=== PATIENT | female | born 1935 | race Hispanic/Latino ===

== ENCOUNTER 2018-07-20 13:21 | Emergency (ER) | payer OTHER ==
--- NOTE | 2018-07-20 14:06 | EDPHYS ---
Physician Documentation [facility] Name: Harpreet Salazar Age: 82 yrs Sex: Female : 1935 Arrival Date: 07/20/2018 Time: 13:25 Bed 28 Private MD: Dee Dee Lubin ED Physician Ervin Watkins HPI: 07/20 13:53 This 82 yrs old Female presents to ER via Ambulatory with complaints of Lips jr8 Swelling. 13:53 Onset: The symptoms/episode began/occurred gradually, 1 week(s) ago. Duration: The jr8 symptoms are continuous. Modifying factors: The symptoms are alleviated by nothing, the symptoms are aggravated by cold fluids, hot fluids, talking. Associated signs and symptoms: The patient has no apparent associated signs or symptoms. Severity of symptoms: At their worst the symptoms were mild, in the emergency department the symptoms are unchanged. The patient has not experienced similar symptoms in the past. The patient has not recently seen a physician. Noticed tenderness and cracking of lips about one week ago that is getting worse. No has lesions on lips. Historical: - Allergies: 13:31 No Known Allergies; sv - Home Meds: 13:31 indapamide 2.5 mg oral tab [Active]; lisinopril 20 mg Oral tab [Active]; Bactrim DS sv 800-160 mg Oral tab [Active]; meloxicam 15 mg oral tab 1 tab once daily [Active]; - PMHx: 13:31 Hypertension; sv - PSHx: 13:31 Hysterectomy; sv - Immunization history:: Adult Immunizations up to date. - Social history:: Smoking status: Patient/guardian denies using tobacco. - Ebola Screening: : No symptoms or risks identified at this time. ROS: 13:53 Eyes: Negative for injury, pain, redness, and discharge, Neck: Negative for injury, jr8 pain, and swelling, Cardiovascular: Negative for chest pain, palpitations, and edema, Respiratory: Negative for shortness of breath, cough, wheezing, and pleuritic chest pain, Abdomen/GI: Negative for abdominal pain, nausea, vomiting, diarrhea, and constipation, Back: Negative for injury and pain, MS/Extremity: Negative for injury and deformity, Skin: Negative for injury, rash, and discoloration, Neuro: Negative for headache, weakness, numbness, tingling, and seizure. 13:53 ENT: Negative for foreign body sensation, Gum pain sore throat, dental pain, difficulty swallowing, difficulty handling secretions, hoarseness. Exam: 14:04 Head/Face: Normocephalic, atraumatic. Eyes: Pupils equal round and reactive to light, jr8 extra-ocular motions intact. Lids and lashes normal. Conjunctiva and sclera are non-icteric and not injected. Cornea within normal limits. Periorbital areas with no swelling, redness, or edema. Neck: Trachea midline, no thyromegaly or masses palpated, and no cervical lymphadenopathy. Supple, full range of motion without nuchal rigidity, or vertebral point tenderness. No Meningismus. Cardiovascular: Regular rate and rhythm with a normal S1 and S2. No gallops, murmurs, or rubs. Normal PMI, no JVD. No pulse deficits. Respiratory: Lungs have equal breath sounds bilaterally, clear to auscultation and percussion. No rales, rhonchi or wheezes noted. No increased work of breathing, no retractions or nasal flaring. Abdomen/GI: Soft, non-tender, with normal bowel sounds. No distension or tympany. No guarding or rebound. No evidence of tenderness throughout. Back: No spinal tenderness. No costovertebral tenderness. Full range of motion. Skin: Warm, dry with normal turgor. Normal color with no rashes, no lesions, and no evidence of cellulitis. MS/ Extremity: Pulses equal, no cyanosis. Neurovascular intact. Full, normal range of motion. Neuro: Awake and alert, GCS 15, oriented to person, place, time, and situation. Cranial nerves II-XII grossly intact. Motor strength 5/5 in all extremities. Sensory grossly intact. Cerebellar exam normal. Normal gait. 14:04 ENT: Exam is negative for earache, ear discharge, TM abnormalities, nasal discharge, pharyngitis, Mouth: Lips: moist, cracked, ulcerative lesions noted, Oral mucosa: pink and intact, moist, Gums: pink, Tongue: is moist, Posterior pharynx: Airway: patent, Tonsils: are normal in appearance, no enlargement, no erythema, no exudate, no ulcerations, Uvula: midline, non-edematous, no erythema, swelling, is not appreciated, erythema, is not appreciated. Vital Signs: 13:31 BP 147 / 64; Pulse 87; Resp 18; Temp 98.4; Pulse Ox 98% ; Weight 66.22 kg; Height 5 ft. sv 1 in. (154.94 cm); 13:31 Body Mass Index 27.59 (66.22 kg, 154.94 cm) sv MDM: 13:53 Patient medically screened. jr8 14:04 Data reviewed: vital signs, nurses notes, and as a result, I will discharge patient. jr8 Data interpreted: Pulse oximetry: on room air is 98 %. Interpretation: normal. Counseling: I had a detailed discussion with the patient and/or guardian regarding: the historical points, exam findings, and any diagnostic results supporting the discharge/admit diagnosis, the need for outpatient follow up, a family practitioner, to return to the emergency department if symptoms worsen or persist or if there are any questions or concerns that arise at home. Administered Medications: No medications were administered Disposition: 14:20 Co-signature as Attending Physician, Ervin Watkins MD I agree with the assessment and kdr plan of care. Disposition: 07/20/18 14:06 Discharged to Home. Impression: Stomatitis and related lesions. - Condition is Stable. - Discharge Instructions: Stomatitis. - Prescriptions for Acyclovir 400 mg Oral Tablet - take 1 tablet by ORAL route 5 times per day for 7 days; 35 tablet. - Medication Reconciliation Form, Thank You Letter, Antibiotic Education, Prescription Opioid Use form. - Follow up: Dee Dee Lubin MD; When: 1 week; Reason: Recheck today's complaints, Continuance of care, Re-evaluation by your physician. - Problem is new. - Symptoms have improved. Signatures: Alma Rojas, RN RN Ervin Sullivan MD MD [facility] Jayesh Soto PA PA jr8 Sandra Delgado RN RN kr2 Corrections: (The following items were deleted from the chart) 14:19 14:06 07/20/2018 14:06 Discharged to Home. Impression: Stomatitis and related lesions. kr2 Condition is Stable. Forms are Medication Reconciliation Form, Thank You Letter, Antibiotic Education, Prescription Opioid Use. Follow up: Dee Dee Lubin; When: 1 week; Reason: Recheck today's complaints, Continuance of care, Re-evaluation by your physician. Problem is new. Symptoms have improved. jr8
--- NOTE | 2018-07-20 14:06 | ER ---
Nurse's Notes [facility] Name: Harpreet Salazar Age: 82 yrs Sex: Female : 1935 Arrival Date: 07/20/2018 Time: 13:25 Bed 28 Private MD: Dee Dee Lubin Diagnosis: Stomatitis and related lesions Presentation: 07/20 13:29 Presenting complaint: Patient states: lip swelling started a week ago. also c/o hard sv time swallowing. Transition of care: patient was not received from another setting of care. Onset of symptoms was July 13, 2018. Care prior to arrival: None. 13:29 Method Of Arrival: Ambulatory sv 13:29 Acuity: NÉSTOR 3 sv 13:40 Risk Assessment: Do you want to hurt yourself or someone else? Patient reports no kr2 desire to harm self or others. Initial Sepsis Screen: Does the patient meet any 2 criteria? No. Patient's initial sepsis screen is negative. Does the patient have a suspected source of infection? No. Patient's initial sepsis screen is negative. Historical: - Allergies: 13:31 No Known Allergies; sv - Home Meds: 13:31 indapamide 2.5 mg oral tab [Active]; lisinopril 20 mg Oral tab [Active]; Bactrim DS sv 800-160 mg Oral tab [Active]; meloxicam 15 mg oral tab 1 tab once daily [Active]; - PMHx: 13:31 Hypertension; sv - PSHx: 13:31 Hysterectomy; sv - Immunization history:: Adult Immunizations up to date. - Social history:: Smoking status: Patient/guardian denies using tobacco. - Ebola Screening: : No symptoms or risks identified at this time. Screenin:17 Abuse screen: Denies threats or abuse. Denies injuries from another. Nutritional kr2 screening: No deficits noted. Tuberculosis screening: No symptoms or risk factors identified. Fall Risk None identified. Assessment: 13:40 General: Appears in no apparent distress. comfortable, well groomed, well developed, kr2 well nourished, Behavior is calm, cooperative, appropriate for age. Pain: Complains of pain in mouth Pain currently is 3 out of 10 on a pain scale. Quality of pain is described as tender, Is continuous. Neuro: Level of Consciousness is awake, alert, obeys commands, Oriented to person, place, time, situation, Appropriate for age. Cardiovascular: Capillary refill < 3 seconds in bilateral fingers Patient's skin is warm and dry. Respiratory: Airway is patent Respiratory effort is even, unlabored, Respiratory pattern is regular, symmetrical. EENT: lips cracked and swollen, small lesions around mouth. Derm: Skin is healthy with good turgor, Skin is pink, warm \T\ dry. Musculoskeletal: Circulation, motion, and sensation intact. Vital Signs: 13:31 BP 147 / 64; Pulse 87; Resp 18; Temp 98.4; Pulse Ox 98% ; Weight 66.22 kg; Height 5 ft. sv 1 in. (154.94 cm); 13:31 Body Mass Index 27.59 (66.22 kg, 154.94 cm) sv ED Course: 13:25 Patient arrived in ED. mr 13:26 Dee Dee Lubin MD is Private Physician. mr 13:30 Triage completed. sv 13:32 Arm band placed on right wrist. sv 13:34 [facility] jr8 13:34 Ervin Watkins MD is Attending Physician. jr8 13:39 Sandra Delgado, LONNIE is Primary Nurse. kr2 13:40 Patient has correct armband on for positive identification. Bed in low position. Call kr2 light in reach. Side rails up X 1. Pulse ox on. NIBP on. Door closed. Warm blanket given. Head of bed elevated. 14:06 Dee Dee Lubin MD is Referral Physician. jr8 14:18 No provider procedures requiring assistance completed. Patient did not have IV access kr2 during this emergency room visit. Administered Medications: No medications were administered Outcome: 14:06 Discharge ordered by . jr8 14:18 Discharged to home ambulatory. kr2 14:18 Condition: good 14:18 Discharge instructions given to patient, Instructed on discharge instructions, follow up and referral plans. medication usage, Demonstrated understanding of instructions, follow-up care, medications, Prescriptions given X 1. 14:19 Patient left the ED. kr2 Signatures: Alma Rojas RN RN HernandezLore mr Jayesh Soto PA PA jr8 Sandra Delgado, LONNIE RN kr2
[2018-07-20 14:23] VITALS: BP 147/64; TEMP 98.4; O2SAT 98
== END 2018-07-20 14:19 | disposition home or self-care (01) ==
LOC: ER 13:21
DX: K12.1 Other forms of stomatitis (principal); I10 Essential (primary) hypertension
CPT/HCPCS: 99283

== ENCOUNTER 2019-11-20 11:47 | Emergency (ER) | payer OTHER ==
--- OUTSIDE RECORDS SUMMARY | 2019-11-20 11:50 | XMS REPORT ---
:1935 Author Organization eClinical[employer] Care Team Providers Name Role Phone Amee Dee Dee Provider Role Unavailable Allergies, Adverse Reactions, Alerts Substance Reaction Event Type N.K.D.A. Info Not Available Non Drug Allergy Problems Problem Type Condition Code Onset Dates Condition Status Assessment Iron deficiency anemia, unspecified D50.9 Active iron deficiency anemia type Problem Electrolyte abnormality E87.8 Active Assessment Prediabetes R73.03 Active Problem Abnormal CBC R79.89 Active Assessment Hypomagnesemia E83.42 Active Problem High blood pressure I10 Active Problem S/P hysterectomy Z90.710 Active Problem Chest pain, unspecified type R07.9 Active Problem Rash and nonspecific skin eruption R21 Active Problem Hypokalemia E87.6 Active Assessment Rash and nonspecific skin eruption R21 Active Assessment Ingrown toenail L60.0 Active Problem Ingrown toenail L60.0 Active Assessment Hypokalemia E87.6 Active Problem Iron deficiency anemia, unspecified D50.9 Active iron deficiency anemia type Problem Anemia, unspecified type D64.9 Active Problem Depression screening Z13.31 Active Problem Prediabetes R73.03 Active Problem Hypomagnesemia E83.42 Active Problem Seasonal allergies J30.2 Active Assessment Essential hypertension I10 Active Problem Lower abdominal pain R10.30 Active Problem History of ovarian cyst Z87.42 Active Problem Hyperglycemia R73.9 Active Problem Essential hypertension I10 Active Medications Medication Code Code Instructions Start End Status Dosage System Date Date Ferrous Sulfate [facility] 40477937310 325 (65 Fe) MG December Active 1 tablet Orally Twice a , 2018 Triamcinolone ND 91799215837 0.1 % Oct 04, Active 1 application Acetonide Externally 2019 to affected Twice a day areas Lisinopril ND 72028685762 20 MG Orally Active 1 tablet Once a day Indapamide ND 44677394401 2.5 MG Orally Active 1 tablet in Once a day the morning Results No Known Results Summary Purpose eClinicalWorks Submission
--- OUTSIDE RECORDS SUMMARY | 2019-11-20 11:50 | XMS REPORT ---
:1935 Author Organization [employer] Care Team Providers Name Role Phone Dee Dee Lubin Provider Role Unavailable Allergies, Adverse Reactions, Alerts Substance Reaction Event Type N.K.D.A. Info Not Available Non Drug Allergy Problems Problem Type Condition Code Onset Dates Condition Status Problem Electrolyte abnormality E87.8 Active Problem High blood pressure I10 Active Problem Abnormal CBC R79.89 Active Problem Depression screening Z13.31 Active Assessment Prediabetes R73.03 Active Problem Prediabetes R73.03 Active Assessment Iron deficiency anemia, unspecified D50.9 Active iron deficiency anemia type Problem Hypokalemia E87.6 Active Problem S/P hysterectomy Z90.710 Active Problem Chest pain, unspecified type R07.9 Active Problem Iron deficiency anemia, unspecified D50.9 Active iron deficiency anemia type Problem Anemia, unspecified type D64.9 Active Assessment Essential hypertension I10 Active Assessment Hypomagnesemia E83.42 Active Assessment Hypokalemia E87.6 Active Problem History of ovarian cyst Z87.42 Active Problem Hyperglycemia R73.9 Active Problem Hypomagnesemia E83.42 Active Problem Essential hypertension I10 Active Problem Seasonal allergies J30.2 Active Problem Lower abdominal pain R10.30 Active Medications Medication Code Code Instructions Start End Status Dosage System Date Date Ferrous [facility] 19399873681 325 (65 Fe) MG January 04, Active 1 tablet Sulfate Orally Twice a 2019 day Lisinopril [facility] 05937042598 20 mg Orally Active 1 tablet Once a day Indapamide [facility] 61800095951 2.5 MG Orally Active 1 tablet Once a day in the morning Results No Known Results Summary Purpose eClinicalWorks Submission
--- OUTSIDE RECORDS SUMMARY | 2019-11-20 11:50 | XMS REPORT ---
:1935 Author Organization [employer] Care Team Providers Name Role Phone Dee Dee Lubin Provider Role Unavailable Allergies No Known Allergies Problems Problem Type Condition Code Onset Dates Condition Status Problem High blood pressure I10 Active Problem S/P hysterectomy Z90.710 Active Problem Chest pain, unspecified type R07.9 Active Problem Rash and nonspecific skin eruption R21 Active Problem Hypokalemia E87.6 Active Problem Ingrown toenail L60.0 Active Problem Iron deficiency anemia, unspecified D50.9 Active iron deficiency anemia type Problem Anemia, unspecified type D64.9 Active Problem Depression screening Z13.31 Active Problem Prediabetes R73.03 Active Problem Hypomagnesemia E83.42 Active Problem Seasonal allergies J30.2 Active Problem Lower abdominal pain R10.30 Active Problem History of ovarian cyst Z87.42 Active Problem Hyperglycemia R73.9 Active Problem Electrolyte abnormality E87.8 Active Problem Essential hypertension I10 Active Problem Abnormal CBC R79.89 Active Medications No Known Medications Results No Known Results Summary Purpose eClinicalWorks Submission
[2019-11-20] MEDS ORDERED: IBUPROFEN 200 MG TAB PO ONE (12:49)
--- NOTE | 2019-11-20 14:16 | ER ---
Nurse's Notes [facility] Name: Harpreet Salazar Age: 84 yrs Sex: Female : 1935 Arrival Date: 11/20/2019 Time: 11:50 Bed 28 Private MD: Diagnosis: Fall (on)(from) sidewalk curb Presentation: 11/20 12:17 Presenting complaint: Patient states: She fell on Thursday morning and landed on her aj1 right side. Patient reports pain to right ribs and right upper arm. Reports that pain is worse with deep breathing. Transition of care: patient was not received from another setting of care. Onset of symptoms was 2019. Risk Assessment: Do you want to hurt yourself or someone else? Patient reports no desire to harm self or others. Initial Sepsis Screen: Does the patient meet any 2 criteria? No. Patient's initial sepsis screen is negative. Does the patient have a suspected source of infection? No. Patient's initial sepsis screen is negative. Care prior to arrival: None. 12:17 Method Of Arrival: Ambulatory aj1 12:17 Acuity: NÉSTOR 4 aj1 Triage Assessment: 12:22 General: Appears in no apparent distress. comfortable, Behavior is calm, cooperative, aj1 appropriate for age. Pain: Pain currently is 8 out of 10 on a pain scale. Historical: - Allergies: 12:22 No Known Allergies; aj1 - Home Meds: 12:22 lisinopril 2.5 mg Oral tab 1 tab once daily [Active]; indapamide 2.5 mg Oral tab aj1 [Active]; - PMHx: 12:22 Hypertension; aj1 - Immunization history:: Flu vaccine is up to date. - Social history:: Smoking status: Patient/guardian denies using tobacco, Patient/guardian denies using alcohol, street drugs, The patient lives with family. - Ebola Screening: : Patient denies travel to an Ebola-affected area in the 21 days before illness onset. - Family history:: not pertinent. Screenin:23 Abuse screen: Denies threats or abuse. Denies injuries from another. Nutritional aj1 screening: No deficits noted. Tuberculosis screening: No symptoms or risk factors identified. 14:43 Fall Risk None identified. aj1 Assessment: 12:23 General: Appears in no apparent distress. comfortable, Behavior is calm, cooperative, aj1 appropriate for age. Pain: Complains of pain in right lateral posterior chest, right lateral anterior chest, right bicep and right tricep Pain does not radiate. Pain currently is 8 out of 10 on a pain scale. Quality of pain is described as sharp, Pain began 2-3 days ago. Aggravated by deep breathing. Neuro: Level of Consciousness is awake, alert, obeys commands, Oriented to person, place, time, situation. Cardiovascular: Patient's skin is warm and dry. Respiratory: Airway is patent Respiratory effort is even, unlabored, Respiratory pattern is regular, symmetrical. GI: No signs and/or symptoms were reported involving the gastrointestinal system. : No signs and/or symptoms were reported regarding the genitourinary system. EENT: No signs and/or symptoms were reported regarding the EENT system. Derm: No signs and/or symptoms reported regarding the dermatologic system. Skin is pink, warm \T\ dry. normal. Musculoskeletal: No signs and/or symptoms reported regarding the musculoskeletal system. Circulation, motion, and sensation intact. 13:30 Reassessment: Patient appears in no apparent distress at this time. No changes from aj1 previously documented assessment. Patient and/or family updated on plan of care and expected duration. Pain level reassessed. Patient is alert, oriented x 3, equal unlabored respirations, skin warm/dry/pink. 14:42 Reassessment: Patient appears in no apparent distress at this time. No changes from aj1 previously documented assessment. Patient and/or family updated on plan of care and expected duration. Pain level reassessed. Patient is alert, oriented x 3, equal unlabored respirations, skin warm/dry/pink. Vital Signs: 12:22 BP 122 / 61; Pulse 80; Resp 18; Temp 97.5; Pulse Ox 99% on R/A; Weight 63.5 kg (R); aj1 Height 5 ft. 1 in. (154.94 cm) (R); Pain 8/10; 13:30 BP 121 / 63; Pulse 82; Resp 18; Pulse Ox 97% on R/A; aj1 12:22 Body Mass Index 26.45 (63.50 kg, 154.94 cm) aj1 ED Course: 11:50 Patient arrived in ED. rg4 11:55 Keyshawn Sheldon MD is Attending Physician. ma2 12:17 Hilary Sheikh, RN is Primary Nurse. aj1 12:21 Triage completed. aj1 12:22 Arm band placed on Patient placed in an exam room. aj1 12:23 Patient has correct armband on for positive identification. Bed in low position. Call aj1 light in reach. Side rails up X 1. 12:23 No provider procedures requiring assistance completed. aj1 13:04 Chest Pa And Lat (2 Views) XRAY In Process Unspecified. EDMS 14:30 Patient did not have IV access during this emergency room visit. sg Administered Medications: 12:48 Drug: Motrin 200 mg Route: PO; aj1 Outcome: 14:15 Discharge ordered by . ma2 14:30 Discharged to home ambulatory, with family. sg 14:30 Condition: good 14:30 Discharge instructions given to patient, Instructed on discharge instructions, follow up and referral plans. no drinking with medication, no driving heavy equipment, medication usage, safety practices, Demonstrated understanding of instructions, follow-up care, medications, Prescriptions given X 1. 14:39 Patient left the ED. sg Signatures: Dispatcher [employer] EDHilary Cooley, RN RN Deo Medeiros RN RN sg Garcia, Rubi rg4 Keyshawn Sheldon MD MD [facility]
--- NOTE | 2019-11-20 14:16 | EDPHYS ---
Physician Documentation [facility] Name: Harpreet Salazar Age: 84 yrs Sex: Female : 1935 Arrival Date: 11/20/2019 Time: 11:50 Bed 28 Private MD: ED Physician Keyshawn Sheldon HPI: 11/20 12:45 This 84 yrs old Female presents to ER via Ambulatory with complaints of Rib ma2 Pain. 12:45 The patient or guardian reports chest pain that is located primarily in the right ma2 lateral posterior chest. Onset: The symptoms/episode began/occurred suddenly, 2 day(s) ago. Associated signs and symptoms: Pertinent negatives: diaphoresis, headache, lower extremity swelling, lightheadedness. Severity of pain: At its worst the pain was mild in the emergency department the pain is unchanged. The patient has not experienced similar symptoms in the past. tripped and fell has right sided chest wall pain . Historical: - Allergies: 12:22 No Known Allergies; aj1 - Home Meds: 12:22 lisinopril 2.5 mg Oral tab 1 tab once daily [Active]; indapamide 2.5 mg Oral tab aj1 [Active]; - PMHx: 12:22 Hypertension; aj1 - Immunization history:: Flu vaccine is up to date. - Social history:: Smoking status: Patient/guardian denies using tobacco, Patient/guardian denies using alcohol, street drugs, The patient lives with family. - Ebola Screening: : Patient denies travel to an Ebola-affected area in the 21 days before illness onset. - Family history:: not pertinent. ROS: 12:45 Constitutional: Negative for fever, chills, and weight loss. ma2 12:45 All other systems are negative. Exam: 12:45 Constitutional: This is a well developed, well nourished patient who is awake, alert, ma2 and in no acute distress. Head/Face: Normocephalic, atraumatic. Eyes: Pupils equal round and reactive to light, extra-ocular motions intact. Lids and lashes normal. Conjunctiva and sclera are non-icteric and not injected. Cornea within normal limits. Periorbital areas with no swelling, redness, or edema. ENT: Nares patent. No nasal discharge, no septal abnormalities noted. Tympanic membranes are normal and external auditory canals are clear. Oropharynx with no redness, swelling, or masses, exudates, or evidence of obstruction, uvula midline. Mucous membranes moist. Neck: Trachea midline, no thyromegaly or masses palpated, and no cervical lymphadenopathy. Supple, full range of motion without nuchal rigidity, or vertebral point tenderness. No Meningismus. Chest/axilla: Normal chest wall appearance and motion. + ttp on right lateral 9th rib, no skin chages no deformity. No lesions are appreciated. Cardiovascular: Regular rate and rhythm with a normal S1 and S2. No gallops, murmurs, or rubs. Normal PMI, no JVD. No pulse deficits. Respiratory: Lungs have equal breath sounds bilaterally, clear to auscultation and percussion. No rales, rhonchi or wheezes noted. No increased work of breathing, no retractions or nasal flaring. Abdomen/GI: Soft, non-tender, with normal bowel sounds. No distension or tympany. No guarding or rebound. No evidence of tenderness throughout. Vital Signs: 12:22 BP 122 / 61; Pulse 80; Resp 18; Temp 97.5; Pulse Ox 99% on R/A; Weight 63.5 kg (R); aj1 Height 5 ft. 1 in. (154.94 cm) (R); Pain 8/10; 13:30 BP 121 / 63; Pulse 82; Resp 18; Pulse Ox 97% on R/A; aj1 12:22 Body Mass Index 26.45 (63.50 kg, 154.94 cm) [facility] MDM: 11:55 Patient medically screened. ma2 12:45 Differential diagnosis: Blunt Chest Trauma Chest Wall Contusion Chest Wall Injury Rib ma2 Fracture. Data reviewed: vital signs, nurses notes. Counseling: I had a detailed discussion with the patient and/or guardian regarding: the historical points, exam findings, and any diagnostic results supporting the discharge/admit diagnosis, the presence of at least one elevated blood pressure reading (>120/80) during this emergency department visit, the need for outpatient follow up. Response to treatment: the patient's symptoms have markedly improved after treatment. 11/20 12:25 Order name: Chest Pa And Lat (2 Views) XRAY ma2 Administered Medications: 12:48 Drug: Motrin 200 mg Route: PO; aj1 Disposition: 11/20/19 14:15 Discharged to Home. Impression: Fall (on)(from) sidewalk curb. - Condition is Stable. - Prescriptions for Tylenol- Codeine #3 300-30 mg Oral Tablet - take 2 tablet by ORAL route every 6 hours As needed; 30 tablet. - Medication Reconciliation Form, Thank You Letter, Antibiotic Education, Prescription Opioid Use form. - Follow up: Private Physician; When: Tomorrow; Reason: Continuance of care. Signatures: Dispatcher [employer] EDHilary Cooley RN RN aj1 Deo Escobar RN RN sg Keyshawn Sheldon MD MD ma2 Corrections: (The following items were deleted from the chart) 14:39 14:15 11/20/2019 14:15 Discharged to Home. Impression: Fall (on)(from) sidewalk curb. sg Condition is Stable. Prescriptions for Tylenol-Codeine #3 300-30 mg Oral Tablet - take 2 tablet by ORAL route every 6 hours As needed; 30 tablet. and Forms are Medication Reconciliation Form, Thank You Letter, Antibiotic Education, Prescription Opioid Use. Follow up: Private Physician; When: Tomorrow; Reason: Continuance of care. ma2
--- NOTE | 2019-11-20 14:18 | RAD REPORT ---
EXAM DESCRIPTION: RAD - Chest Pa And Lat (2 Views) - 11/20/2019 1:04 pm CLINICAL HISTORY: right lower rib pain s/p trauma COMPARISON: CHEST SINGLE VIEW dated 07/05/2015; CHEST SINGLE VIEW dated 03/13/2014 TECHNIQUE: Frontal and lateral views of the chest were obtained. FINDINGS: The lungs are fibrotic as a baseline. Interstitial markings in the left base are slightly more pronounced than the comparison study. Correlation can be made with any left findings are physica l exam findings for a posterior left base early pneumonia. Chronic disease could mask early interstit ial edema or infiltrate. Heart size is normal and central vasculature is within normal limits. No pleural effusion or pneumothorax seen. No acute bony finding noted. No aortic abnormality. IMPRESSION: Posterior left base stranding increased over the baseline fibrotic change. Correlation is needed with any lab or exam findings for posterior left lung base early pneumonia.
[2019-11-20 15:01] VITALS: BP 122/61; TEMP 97.5; O2SAT 99
== END 2019-11-20 14:39 | disposition home or self-care (01) ==
LOC: ER 11:47
DX: R07.81 Pleurodynia (principal); W10.1XXA Fall (on)(from) sidewalk curb, initial encounter; Y93.9 Activity, unspecified; Y92.9 Unspecified place or not applicable; I10 Essential (primary) hypertension
CPT/HCPCS: 71046; 99283

== ENCOUNTER 2020-09-11 09:57 | Emergency (ER) | payer OTHER ==
--- OUTSIDE RECORDS SUMMARY | 2020-09-11 10:03 | XMS REPORT | Continuity of Care Document ---
:1935 Author Organization [facility] t Address [address] [place] [address] Care Team Providers Name Role Phone Unavailable Unavailable Unavailable Problems Condition Condition Condition Status Onset Resolution Last Treating Co mments Source Name Details Category Date Date Treatment Clinician Date Essential Essential Problem Active [facility] hypertensi hypertensi Melvina kes - [facility] Seasonal Seasonal Problem [facility] allergies [facility] - [facility] Electrolyt Electrolyt Problem Active [facility] - abnormalit abnormalit Me moria y y l [facility] Abnormal Abnormal Problem Active [facility] CBC CBC [facility] Hyperglyce Hyperglyce Problem Active [facility] hortencia hortencia [facility] Lower Lower Problem Active [facility] abdominal abdominal Luke s - pain pain [facility]oria l [facility] S/P S/P Problem Active [facility] hysterecto hysterecto Melvina kes - my my [facility]oria l [facility] Chest Chest Problem Active [facility] pain, pain, [facility] - unspecifie unspecifie Me moria d type d type l [facility] History of History of Problem Active [facility] ovarian ovarian [facility] - cyst cyst [facility] l [facility] Anemia, Anemia, Problem Active [facility] unspecifie unspecifie Melvina kes - d type d type [facility] l [facility] Prediabete Prediabete Problem Active [facility] s s [facility] Iron Iron Diagnosis Active [facility] deficiency deficiency Melvina kes - anemia, anemia, Memoria unspecifie unspecifie l d iron d iron Outpati deficiency deficiency en t anemia anemia Clinics type type Depression Depression Problem Active [facility] screening screening [facility] - [facility]oria l [facility]ics Hypokalemi Hypokalemi Diagnosis Active [facility] Hypomagnes Hypomagnes Diagnosis Active [facility] Rash and Rash and Diagnosis Active [facility] nonspecifi nonspecifi Melvina kes - c skin c skin Memoria eruption eruption [facility] ent [facility] Ingrown Ingrown Problem Active [facility] toenail toenail [facility] Clinics Allergies, Adverse Reactions, Alerts This patient has no known allergies or adverse reactions. Medications Ordered Filled Start Stop Current Ordering Indication Dosage Frequency Signature Comments Components Source Medication Medication Date Date Medication? Clinician (SIG) Name Name Shygerard Lottieamcingerard 2018-11 Yes Dee Dee [address] [facility] ne ne 2-03 Millender applicatio Luke s - Acetonide Acetonide 00:00: n to Mem oria 00 affected l areas [facility] Ferrous Ferrous Yes Dee Dee [address] Sulfate Sulfate 3-05 Millender Luke s - 00:00: Memoria 00 l [facility] ent [facility]ics Indapamide Indapamide Yes Dee Dee [address] [facility] Millender in the Lukes - morning [facility] ent [facility] Lisinopril Lisinopril Yes Dee Dee [address] [facility] Millender [facility] ent [facility] Procedures This patient has no known procedures. Encounters Start End Encounter Admission Attending Care Care Encounter Source Date/Time Date/Time Type Type Clinicians Facility Department ID 2020-04-05 2020-04-05 Outpatient Adrian Benavidez [id number] [facility] 11:00[facility]00 11:00:00 [facility] 2020-01-04 2020-01-04 Outpatient Adrian [place] [id number] [facility] 10[facility]00[facility]00 10:00:00 [facility] 2019-10-04 2019-10-04 Outpatient Adrian [place] [id number] [facility] 10:59:00 10:59:00 [facility] 2019-10-04 2019-10-04 Outpatient Adrian [place] [id number] 10:00[facility]00 10:00:00 [facility] Medicine Outpati ent Clinics 2019-07-05 2019-07-05 [place] [id number] 09:40:00 09:40:00 [facility] Medicine Outpati ent Clinics 2019-06-14 2019-06-14 [place] [id number] [facility] 13:33:00 13:33:00 t [facility] Medicine Outpati ent Clinics 2019-05-06 2019-05-06 [place] [id number] [facility] 09:21:00 09:21:00 t [facility] Medicine Outpati ent Clinics 2019-04-27 2019-04-27 [facility] [id number] [facility] 10:00:00 10:00:00 [facility] Medicine Outpati ent Clinics 2019-01-10 2019-01-10 [place] [id number] [facility] 16:47:00 16:47:00 t [facility] Medicine Outpati ent Clinics 2019-01-04 2019-01-04 [place] [id number] [facility] 16:12:00 16:12:00 [facility] Medicine Outpati ent Clinics 2019-01-03 2019-01-03 [facility] [id number] [facility] 11:30:00 11:30:00 t [facility] Medicine Outpati ent Clinics 2018-08-09 2018-08-09 [facility] [id number] [facility] 22:25:00 22:25:00 t [facility] Medicine Outpati ent Clinics 2018-08-03 2018-08-03 [facility] [id number] [facility] 10[facility]30:00 10:30:00 [facility] Medicine Outpati ent Clinics Results This patient has no known results.
--- NOTE | 2020-09-11 10:41 | RAD REPORT ---
EXAM DESCRIPTION: CT - CTHCSPWOC - 09/11/2020 10:27 am CLINICAL HISTORY: Trauma, head and neck injury. SMASH INJURY COMPARISON: Head C Spine Mpr Wo Con dated 12/24/2016 TECHNIQUE: Axial 5 mm thick images of the head were obtained. Axial 2 mm thick images of the cervical spine were obtained with sagittal and coronal reconstruction images generated and reviewed. All CT scans are performed using dose optimization technique as appropriate and may include automated exposure control or mA/KV adjustment according to patient size. FINDINGS: CT HEAD WITHOUT CONTRAST: No acute hemorrhage, hydrocephalus or extra-axial collection is identified.Moderate brain atrophy.No areas of brain edema or midline shift. The paranasal sinuses and mastoids are clear.The calvarium is intact. CT CERVICAL SPINE WITHOUT CONTRAST: No fracture or subluxation.Mild lower cervical spondylosis.No prevertebral soft tissues swelling is i dentified. The left neural foramina at the level of C5-6 is enlarged. IMPRESSION: No acute intracranial or cervical spine findings. Left neural foramen at C5-6 appears prominent in size. Nonemergent follow-up MRI cervical spine with contrast would be suggested for additional assessment.
[2020-09-11] MEDS ORDERED: NA CHLORIDE 0.9% 1,000 ML ONE (10:47)
[2020-09-11 10:54] LABS: Absolute Lymphocytes (CBC) 2.1 K/uL (0.7-4.9); Basophils % 1.4 % (0-1.3); Hematocrit 21.8 % (36.0-45.0); Lymphocytes % 27.8 % (15.3-44.8); RBC Red Blood Cell Count 3.33 M/uL (3.86-4.86)
--- NOTE | 2020-09-11 11:03 | RAD REPORT ---
EXAM DESCRIPTION: RAD - Chest Single View - 09/11/2020 10:59 am CLINICAL HISTORY: dizzy Chest pain. COMPARISON: Chest Pa And Lat (2 Views) dated 11/20/2019; CHEST SINGLE VIEW dated 07/05/2015; CHEST SING LE VIEW dated 03/13/2014; CHEST SINGLE VIEW dated 03/12/2014 FINDINGS: Portable technique limits examination quality. The lungs are mildly emphysematous but grossly clear. The heart is upper limit normal in size. No dis placed fractures. IMPRESSION: Mild diffuse COPD.
[2020-09-11 11:12] LABS: Protime INR 1.09
[2020-09-11 11:14] LABS: Blood Morphology Comment NOTED (NOT SEEN); Hypochromasia 1+; Platelet Estimate INCR; White Blood Cell Scan OK (OK)
[2020-09-11 11:21] LABS: ALT/SGPT 12 U/L (12-78); AST/SGOT 16 U/L (15-37); Albumin 3.7 g/dL (3.4-5.0); Alkaline Phosphatase 86 U/L (45-117); BUN Blood Urea Nitrogen 21 mg/dL (7-18); Bicarbonate 25 mmol/L (21-32); Bilirubin Direct < 0.1 mg/dL (0-0.2); Bilirubin Total 0.5 mg/dL (0.2-1.0); Glucose Level 128 mg/dL (74-106); Magnesium 1.7 mg/dL (1.8-2.4); NT PRO-BNP 1108 pg/mL (<450); Potassium 3.5 mmol/L (3.5-5.1); Protein, Total 7.5 g/dL (6.4-8.2); Sodium Level 133 mmol/L (136-145); Troponin (Emerg Dept Use Only) 0.08 ng/mL (0.0-0.045)
[2020-09-11 11:27] LABS: Urine Blood NEGATIVE (NEG); Urine Glucose NEGATIVE (NEG); Urine Protein NEGATIVE (NEG)
[2020-09-11] MEDS ORDERED: NA CHLORIDE 0.9% 250 ML ONE ×2 (12:53→18:31)
--- NOTE | 2020-09-11 15:01 | EDPHYS ---
Physician Documentation [facility] Name: Harpreet Salazar Age: 84 yrs Sex: Female : 1935 Arrival Date: 09/11/2020 Time: 09:59 Bed 20 Private MD: Dee Dee Lubin ED Physician Rafael Wick HPI: 09/11 10:50 This 84 yrs old Female presents to ER via Ambulatory with complaints of snw Dizziness. 10:50 The patient presents with pt had palpitations, nausea, and then syncopal episode snw yesterday. No c/o except dizziness today. Denies chest pain, medications changes, previous hx of same. Onset: The symptoms/episode began/occurred suddenly, yesterday. Context: occurred at home, occurred while the patient was "hungry". Associated signs and symptoms: Pertinent positives: syncope. Patient's baseline: Neuro: alert and fully oriented, Motor: no deficits, Ambulation: walks with assist only, Speech: normal. The patient has not experienced similar symptoms in the past. It is unknown whether or not the patient has recently seen a physician. 10:57 Denies LOC. snw Historical: - Allergies: 10:07 No Known Allergies; ca1 - Home Meds: 10:07 lisinopril 20 mg Oral tab 1 tab once daily [Active]; indapamide 2.5 mg Oral tab ca1 [Active]; - PMHx: 10:07 Hypertension; ca1 - PSHx: 10:07 None; ca1 - Immunization history:: Adult Immunizations up to date, Pneumococcal vaccine is not up to date, Flu vaccine is up to date. - Social history:: Smoking status: Patient denies any tobacco usage or history of. ROS: 10:47 Constitutional: Negative for fever, chills, and weight loss, Eyes: Negative for injury, snw pain, redness, and discharge, ENT: Negative for injury, pain, and discharge, Neck: Negative for injury, pain, and swelling, Cardiovascular: Negative for chest pain and edema, palpitations Respiratory: Negative for shortness of breath, cough, wheezing, and pleuritic chest pain, Back: Negative for injury and pain, : Negative for injury, bleeding, discharge, and swelling, MS/Extremity: Negative for injury and deformity, Skin: Negative for injury, rash, and discoloration, Psych: Negative for depression, anxiety, suicide ideation, homicidal ideation, and hallucinations. 10:47 Abdomen/GI: Positive for nausea. 10:47 Neuro: Positive for dizziness. Exam: 10:40 ECG was reviewed by the Attending Physician. snw 10:47 Constitutional: This is a well developed, well nourished patient who is awake, alert, snw and in no acute distress. Head/Face: Normocephalic, atraumatic. Eyes: Pupils equal round and reactive to light, extra-ocular motions intact. Lids and lashes normal. Conjunctiva and sclera are non-icteric and not injected. Cornea within normal limits. Periorbital areas with no swelling, redness, or edema. ENT: Nares patent. No nasal discharge, no septal abnormalities noted. Tympanic membranes are normal and external auditory canals are clear. Oropharynx with no redness, swelling, or masses, exudates, or evidence of obstruction, uvula midline. Mucous membranes moist. Neck: Trachea midline, no thyromegaly or masses palpated, and no cervical lymphadenopathy. Supple, full range of motion without nuchal rigidity, or vertebral point tenderness. No Meningismus. Chest/axilla: Normal chest wall appearance and motion. Nontender with no deformity. No lesions are appreciated. Cardiovascular: Regular rate and rhythm with a normal S1 and S2. No gallops, murmurs, or rubs. Normal PMI, no JVD. No pulse deficits. Respiratory: Lungs have equal breath sounds bilaterally, clear to auscultation and percussion. No rales, rhonchi or wheezes noted. No increased work of breathing, no retractions or nasal flaring. Abdomen/GI: Soft, non-tender, with normal bowel sounds. No distension or tympany. No guarding or rebound. No evidence of tenderness throughout. Back: No spinal tenderness. No costovertebral tenderness. Full range of motion. Skin: Warm, dry with normal turgor. Normal color with no rashes, no lesions, and no evidence of cellulitis. MS/ Extremity: Pulses equal, no cyanosis. Neurovascular intact. Full, normal range of motion. Neuro: Awake and alert, GCS 15, oriented to person, place, time, and situation. Cranial nerves II-XII grossly intact. Motor strength 5/5 in all extremities. Sensory grossly intact. Cerebellar exam normal. Normal gait. Psych: Awake, alert, with orientation to person, place and time. Behavior, mood, and affect are within normal limits. 11:09 Abdomen/GI: Rectal exam: is unremarkable, rectal tone normal, Stool: guaiac positive, snw mass, is not appreciated, swelling, is not appreciated, tenderness, is not appreciated, the exam is chaperoned by the nurse. Vital Signs: 10:03 BP 115 / 45; Pulse 74; Resp 16 S; Temp 97.9(TE); Pulse Ox 100% on R/A; Weight 63.05 kg ca1 (R); Height 5 ft. 1 in. (154.94 cm) (R); Pain 0/10; 11:03 BP 119 / 53; Pulse 73; Resp 18; Pulse Ox 100% on R/A; ll2 11:30 BP 107 / 48; Pulse 66; Resp 19; Pulse Ox 100% ; ll2 12:30 BP 105 / 44; Pulse 65; Resp 17; Pulse Ox 100% ; ll2 13:30 BP 131 / 50; Pulse 66; Resp 16; Temp 98.0(TE); Pulse Ox 100% on R/A; mh5 14:21 BP 124 / 57; Pulse 63; Resp 16; Temp 97.5(TE); Pulse Ox 100% on R/A; mh5 15:00 BP 122 / 54; Pulse 63; Resp 16; Temp 97.7; Pulse Ox 100% ; ll2 16:50 BP 135 / 60; Pulse 66; Resp 16; Pulse Ox 97% on R/A; mh5 18:00 BP 162 / 64; Pulse 74; Resp 18; Temp 97.2; Pulse Ox 99% on R/A; ll2 19:00 BP 111 / 93; Pulse 67; Resp 18; Pulse Ox 100% on R/A; ll2 10:03 Body Mass Index 26.26 (63.05 kg, 154.94 cm) ca1 MDM: 10:08 Patient medically screened. snw 13:00 Data reviewed: nurses notes. Data interpreted: Pulse oximetry: on room air is 100 %. snw Interpretation: normal. Counseling: I had a detailed discussion with the patient and/or guardian regarding: the historical points, exam findings, and any diagnostic results supporting the discharge/admit diagnosis, lab results, radiology results, the need to transfer to another facility, [facility] does not immediately have the required specialist. 13:00 Response to treatment: the patient's symptoms have mildly improved after treatment. snw Physician consultation: Contreras Moreno MD was called at 13:00, was contacted at 13:00, regarding admission, to the telemetry unit. after a discussion of the case, a recommendation for transfer for higher level of care is made, would like consultation with Dr. AVILA, [place] is not available. Awaiting: transfer process. 14:00 Physician consultation: Dr Ramos was called at 14:57, was contacted at 14:57, regarding snw regarding transfer, [facility]. 09/11 10:12 Order name: Basic Metabolic Panel; Complete Time: 11:23 snw 09/11 10:12 Order name: CBC with Diff; Complete Time: 11: snw 09/11 10:12 Order name: LFT's; Complete Time: 11:23 snw 09/11 10:12 Order name: Magnesium; Complete Time: 11:23 snw 09/11 10:12 Order name: NT PRO-BNP; Complete Time: 11:23 snw 09/11 10:12 Order name: PT-INR; Complete Time: 11: snw 09/11 10:12 Order name: Troponin (emerg Dept Use Only); Complete Time: 11:23 snw 09/11 10:37 Order name: Urine Dipstick--Ancillary (enter results); Complete Time: 11:34 em1 09/11 11:00 Order name: CBC Smear Scan; Complete Time: 11:15 EDIN 09/11 11:02 Order name: TSH; Complete Time: 12:13 snw 09/11 11:02 Order name: Bb Add On snw 09/11 11:02 Order name: Packed Rbc Leukored As-1 snw 09/11 11:05 Order name: ABO/RH typing EDIN 09/11 10:12 Order name: CT Head C Spine; Complete Time: 10:46 snw 09/11 10:12 Order name: XRAY Chest (1 view); Complete Time: 11:11 snw 09/11 10:12 Order name: EKG; Complete Time: 10:13 snw 09/11 10:12 Order name: Cardiac monitoring; Complete Time: 10:16 snw 09/11 10:12 Order name: EKG - Nurse/Tech; Complete Time: 10:17 snw 09/11 10:12 Order name: IV Saline Lock; Complete Time: 11:03 snw 09/11 10:12 Order name: Labs collected and sent; Complete Time: 11:03 snw 09/11 10:12 Order name: O2 Per Protocol; Complete Time: 12:11 snw 09/11 10:12 Order name: O2 Sat Monitoring; Complete Time: 12:11 snw 09/11 10:37 Order name: Urine Dipstick-Ancillary (obtain specimen); Complete Time: 11:51 em1 09/11 11:05 Order name: Antibody Screen EDMS 09/11 11:15 Order name: COVID-19; Complete Time: 15:00 snw 09/11 12:27 Order name: ABO/RH no charge; Complete Time: 12:27 EDMS 09/11 11:02 Order name: Consent for Blood Transfusion; Complete Time: 12:02 snw EC:40 Rate is 72 beats/min. Rhythm is regular. QRS Ragland is Normal. WA interval is normal. QRS snw interval is normal. Clinical impression: NSR w/ Non-specific ST/T Changes. Administered Medications: 10:21 CANCELLED (error): Potassium Chloride 20 mEq IV at calculated rate once; administer snw over 1-2 hours 10:21 CANCELLED (error): Sodium Bicarbonate 1 amp IVP once; (50 mL); equals 50 mEq snw 10:35 Drug: NS 0.9% 1000 ml Route: IV; Rate: 75 ml/hr; Site: right antecubital; ll2 19:07 Follow up: IV Status: Infusion continued upon transfer ll2 Disposition: 09/12 06:55 Co-signature as Attending Physician, Rafael Wick MD I agree with the assessment and [facility] plan of care. Disposition: 09/11/20 15:00 Transfer ordered to Other Acute Care Facility. Diagnosis are Syncope and collapse, Gastrointestinal bleeding, Iron deficiency anemia, unspecified. - Reason for transfer: Higher level of care. - Accepting physician is Dr. Azar. - Condition is Stable. - Problem is new. - Symptoms are unchanged. Signatures: Dispatcher [employer] Rafael Frias MD MD cha Waters, Shelly, TRAY ROOM WORKER-C TRAY ROOM WORKER-Csnw Dionisio Perdomo em1 Evelyne Painting, RN RN ca1 Mirta Qureshi, LONNIE RN ll2 Corrections: (The following items were deleted from the chart) 09/11 10:21 10:21 Potassium Chloride 20 mEq IV at calculated rate once; administer over 1-2 hours snw ordered. snw 10: 10:21 Sodium Bicarbonate 1 amp IVP once; (50 mL); equals 50 mEq ordered. snw snw 11:08 11:03 TYPE AND SCREEN+[id number].BRZ ordered. EDMS EDMS 19:05 15:00 09/11/2020 15:00 Transfer ordered to Other Acute Care Facility. Diagnosis is ll2 Syncope and collapse; Gastrointestinal bleeding; Iron deficiency anemia, unspecified. Reason for transfer: Higher level of care. Accepting physician is Dr. Azar. Condition is Stable. Problem is new. Symptoms are unchanged. snw
--- NOTE | 2020-09-11 15:01 | ER ---
Nurse's Notes [facility] Name: Harpreet Salazar Age: 84 yrs Sex: Female : 1935 Arrival Date: 09/11/2020 Time: 09:59 Bed 20 Private MD: Dee Dee Lubin Diagnosis: Syncope and collapse;Gastrointestinal bleeding;Iron deficiency anemia, unspecified Presentation: 09/11 10:03 Chief complaint: Patient's son or daughter states: Daughter: She said she felt weak ca1 last night then she fell backward and hit back of head on the furniture. Denies LOC. Not on blood thinners. Until now she feels dizzy, especially when she moves fast or bends down. She also said she feels cold, then hot. Denies pain at this time. Reports general weakness. Coronavirus screen: Client denies travel out of the [place] in the last 14 days. At this time, the client does not indicate any symptoms associated with coronavirus-19. The client denies any previous COVID testing. Ebola Screen: Patient negative for fever greater than or equal to 101.5 degrees Fahrenheit, and additional compatible Ebola Virus Disease symptoms Patient denies exposure to infectious person. Patient denies travel to an Ebola-affected area in the 21 days before illness onset. No symptoms or risks identified at this time. Initial Sepsis Screen: Does the patient meet any 2 criteria? No. Patient's initial sepsis screen is negative. Does the patient have a suspected source of infection? No. Patient's initial sepsis screen is negative. Risk Assessment: Do you want to hurt yourself or someone else? Patient reports no desire to harm self or others. Onset of symptoms was September 11, 2020. 10:03 Method Of Arrival: Ambulatory ca1 10:03 Acuity: NÉSTOR 2 ca1 Triage Assessment: 19:09 General: Appears in no apparent distress. Behavior is calm, cooperative, appropriate ll2 for age. Pain: Denies pain. Historical: - Allergies: 10:07 No Known Allergies; ca1 - Home Meds: 10:07 lisinopril 20 mg Oral tab 1 tab once daily [Active]; indapamide 2.5 mg Oral tab ca1 [Active]; - PMHx: 10:07 Hypertension; ca1 - PSHx: 10:07 None; ca1 - Immunization history:: Adult Immunizations up to date, Pneumococcal vaccine is not up to date, Flu vaccine is up to date. - Social history:: Smoking status: Patient denies any tobacco usage or history of. Screenin:00 Abuse screen: Denies threats or abuse. Denies injuries from another. Nutritional ll2 screening: No deficits noted. Tuberculosis screening: No symptoms or risk factors identified. Fall Risk Fall in past 12 months (25 points). IV access (20 points). Total Jensen Fall Scale indicates High Risk Score (45 or more points). Fall prevention measures have been instituted. Side Rails Up X 2 Placed Close to Nursing Station Frequent Obs/Assessments Occuring Family Present and informed to notify staff if the need to leave the bedside As available patient and family educated on Fall Prevention Program and Strategies. Assessment: 10:34 General: Appears in no apparent distress. Behavior is calm, cooperative, appropriate ll2 for age. Neuro: Level of Consciousness is awake, alert, obeys commands, Oriented to person, place, time, situation. Cardiovascular: Patient's skin is warm and dry. Respiratory: Airway is patent Respiratory effort is even, unlabored, Respiratory pattern is regular, symmetrical. GI: No signs and/or symptoms were reported involving the gastrointestinal system. : No signs and/or symptoms were reported regarding the genitourinary system. EENT: No signs and/or symptoms were reported regarding the EENT system. Derm: Skin is intact, is healthy with good turgor, Skin is dry, Skin is pink, warm \T\ dry. Musculoskeletal: Circulation, motion, and sensation intact. Range of motion: intact in all extremities. 12:02 Reassessment: Patient and/or family updated on plan of care and expected duration. Pain ll2 level reassessed. Patient is alert, oriented x 3, equal unlabored respirations, skin warm/dry/pink. CONSENT FOR BLOOD OBTAINED. 13:33 Reassessment: Patient and/or family updated on plan of care and expected duration. Pain ll2 level reassessed. Patient is alert, oriented x 3, equal unlabored respirations, skin warm/dry/pink. BLOOD TRANSFUSION STARTED AT 1305, NO ADVERSE REACTIONS AT THIS TIME. 14:34 Reassessment: Patient and/or family updated on plan of care and expected duration. Pain ll2 level reassessed. Patient is alert, oriented x 3, equal unlabored respirations, skin warm/dry/pink. 14:58 Reassessment: family requesting update on POC, ERP notified and family updated. ll2 15:21 Reassessment: pts family left for now, left phone numbers for contact: milli Marquez- ll2 ; bebeto: [phone]. 16:24 Reassessment: Patient and/or family updated on plan of care and expected duration. Pain ll2 level reassessed. Patient is alert, oriented x 3, equal unlabored respirations, skin warm/dry/pink. report given to LONNIE magdaleno. pt updated and consent obtained. 17:35 Reassessment: Patient and/or family updated on plan of care and expected duration. Pain ll2 level reassessed. Patient is alert, oriented x 3, equal unlabored respirations, skin warm/dry/pink. 18:53 Reassessment: report given to ems, [facility] ambulance. ll2 Vital Signs: 10:03 BP 115 / 45; Pulse 74; Resp 16 S; Temp 97.9(TE); Pulse Ox 100% on R/A; Weight 63.05 kg ca1 (R); Height 5 ft. 1 in. (154.94 cm) (R); Pain 0/10; 11:03 BP 119 / 53; Pulse 73; Resp 18; Pulse Ox 100% on R/A; ll2 11:30 BP 107 / 48; Pulse 66; Resp 19; Pulse Ox 100% ; ll2 12:30 BP 105 / 44; Pulse 65; Resp 17; Pulse Ox 100% ; ll2 13:30 BP 131 / 50; Pulse 66; Resp 16; Temp 98.0(TE); Pulse Ox 100% on R/A; mh5 14:21 BP 124 / 57; Pulse 63; Resp 16; Temp 97.5(TE); Pulse Ox 100% on R/A; mh5 15:00 BP 122 / 54; Pulse 63; Resp 16; Temp 97.7; Pulse Ox 100% ; ll2 16:50 BP 135 / 60; Pulse 66; Resp 16; Pulse Ox 97% on R/A; mh5 18:00 BP 162 / 64; Pulse 74; Resp 18; Temp 97.2; Pulse Ox 99% on R/A; ll2 19:00 BP 111 / 93; Pulse 67; Resp 18; Pulse Ox 100% on R/A; ll2 10:03 Body Mass Index 26.26 (63.05 kg, 154.94 cm) ca1 ED Course: 09:59 Patient arrived in ED. ag5 09:59 Dee Dee Lubin MD is Private Physician. ag5 10:06 Triage completed. ca1 10:07 Arm band placed on right wrist. ca1 10:08 Bethany Purdy FNP-C is PHCP. snw 10:08 Rafael Wick MD is Attending Physician. snw 10:14 Mirta Qureshi, LONNIE is Primary Nurse. ll2 10:17 EKG done, by ED staff, reviewed by Rafael Wick MD. mh5 10:17 Initial lab(s) drawn, by me, sent to lab. Inserted saline lock: 20 gauge in right ll2 antecubital area, using aseptic technique. Blood collected. 10:18 Patient has correct armband on for positive identification. Placed in gown. Bed in low mh5 position. Call light in reach. Side rails up X2. Warm blanket given. school bus monitor on. Pulse ox on. NIBP on. 10:27 CT Head C Spine In Process Unspecified. EDMS 10:59 XRAY Chest (1 view) In Process Unspecified. EDMS 11:20 Missed attempt(s): 20 gauge in left forearm. Bleeding controlled, band aid applied, jl7 catheter tip intact. 11:22 Missed attempt(s): 20 gauge in left hand. Bleeding controlled, band aid applied, jl7 catheter tip intact. 11:25 Missed attempt(s): 22 gauge in left hand. Bleeding controlled, band aid applied, jl7 catheter tip intact. 11:30 T\T\S collected, blood band applied to patient. jl7 19:04 Report given to [facility] ambulance. ll2 19:12 No provider procedures requiring assistance completed. Maintain EMS IV. Dressing ll2 intact. Site clean \T\ dry. Gauge \T\ site: 20G left and right AC. Administered Medications: 10:21 CANCELLED (error): Potassium Chloride 20 mEq IV at calculated rate once; administer snw over 1-2 hours 10:21 CANCELLED (error): Sodium Bicarbonate 1 amp IVP once; (50 mL); equals 50 mEq snw 10:35 Drug: NS 0.9% 1000 ml Route: IV; Rate: 75 ml/hr; Site: right antecubital; ll2 19:07 Follow up: IV Status: Infusion continued upon transfer ll2 Medication: 19:07 Blood products: PRBCs X 2 units given. ll2 Outcome: 15:00 ER care complete, transfer ordered by MD. chairez 19:05 Patient left the ED. ll2 19:13 Transferred by ground EMS to [facility]. ll2 19:13 Condition: stable 19:13 Discharge instructions given to EMS, Instructed on the need for transfer. Addendum: 09/13/2020 12:34 Addendum: Culture Results: COVID-19 Result: Negative result given to RN to notify pt. gagandeep zapata Contacted by: Shirley Cox. Notified pt of negative COVID 19 swab results. Pt advised that even with a negative test result they should remain in isolation until symptom free for 3 days without medication. Pt also advised to return to the ED for worsening symptoms. Other: Patient daughter notified of result. Signatures: Dispatcher [employer] EDMS Carmina Cox, Bethany Harrison RN, ATHLETIC EQUIPMENT MANAGER-C ATHLETIC EQUIPMENT MANAGER-Csnw Lore Perdomo 5 Landon Abrams RN RN jl7 Evelyne Painting RN RN ca1 [place], Ajare [facility] Mirta Qureshi RN RN 2 Corrections: (The following items were deleted from the chart) 09/11 13:34 11:30 Inserted saline lock: 20 gauge in right antecubital area, using aseptic ll2 technique. Blood collected. [facility] 13:34 11:30 Initial lab(s) drawn, by hi, sent to lab. 2 ll2 19:04 18:00 BP 111 / 93; Pulse 67bpm; Resp 18bpm; Pulse Ox 100% RA; ll2 ll2
[2020-09-12 00:27] VITALS: TEMP 97.2
[2020-09-12 00:28] VITALS: BP 111/93; O2SAT 100
--- NOTE | 2020-09-12 18:07 | EKG ---
Test Date: 2020-09-11 Test Time: 10:39:27 Foam Caster: DORA MEASUREMENT RESULTS: Intervals: Rate: 72 VT: 174 QRSD: 66 QT: 406 QTc: 444 [place]: P: 30 VT: 174 QRS: 29 T: 52 INTERPRETIVE STATEMENTS: Normal sinus rhythm Possible Anterior infarct, age undetermined Abnormal ECG Compared to ECG 01/04/2019 13:18:16 Myocardial infarct finding now present ST (T wave) deviation no longer present Electronically Signed On 09-12-20 18:02:52 [employer] by Ced Yoon
== END 2020-09-11 19:05 ==
LOC: ER 09:57
PROC: 30233N1 Transfusion of Nonautologous Red Blood Cells into Peripheral Vein, Percutaneous Approach (ICD-10-PCS; principal; 2020-09-11)
DX: D50.9 Iron deficiency anemia, unspecified (principal); R55 Syncope and collapse; I10 Essential (primary) hypertension; Z20.828 Contact with and (suspected) exposure to other viral communicable diseases
CPT/HCPCS: 36430 ×2; 96361; 93005; 85025; 80048; 36415; 86900; 83735; 86850; 85610; 86901; 80076; 84443; 81003; 84484; 83880; 70450; 72125; 71045; 96360; 99285; U0002; P9016 ×2; J7050 ×2; J7030

== ENCOUNTER 2021-05-01 14:51 | Emergency (ER) | payer OTHER ==
--- OUTSIDE RECORDS SUMMARY | 2021-05-01 14:54 | XMS REPORT | Continuity of Care Document ---
:[address] [facility] t Address [address] Go [address] [place] [id number] Care Team Providers Name Role Phone Anabelle Lubin MD Primary Care Physician Lab, Fam Pob I Attending Clinician Unavailable Roxanna Azar MD Attending Clinician Marita Gant MD Attending Clinician Black MULLINS Attending Clinician Ramonita MULLINS, B. Attending Clinician Misael Yung DO Attending Clinician ROXANNA AZAR Attending Clinician Unavailable MARITA GANT Admitting Clinician Unavailable Payers Payer Name Policy Type Policy Effective Date Expiration Date Sour ce Number [facility] - [id number] 2019 CHET Real MEDICARE MGD 00:00:00 - Medical CAREUNITED MEDICARE Cente r [id number] 2018-P resent TEIXEIRA [id number] 2016 [facility]T [facility] MEDICAIDMEDICAID 00:00:00 - Medica l [id number]/ Ce nter 6-Present Problems Condition Condition Condition Status Onset Resolution Last Treating Co mments Source Name Details Category Date Date Treatment Clinician Date Severe Severe Disease Active 2019-[address] [facility] anemia anemia 11-12 [facility] 00 [place] Hypertensi Hypertensi Disease Active 2019-[address] on on 11-12 [facility] 00 [place] Upper GI Upper GI Disease Active 2019-11 [facility] bleed bleed 11-11 [facility] - [facility]: Medical 00 [place] Anemia Anemia Disease Active 2019-11 Overview: [facility] 11[facility]11 Added [facility] - 00:[facility]: automatic Medical 00 ally from Center request for surgery [id number] Allergies, Adverse Reactions, Alerts This patient has no known allergies or adverse reactions. Social History Social Habit Start Date Stop Date Quantity Comments Source History [facility] Alcohol Std Drinks [facility] History [facility] - Alcohol Binge Medical [facility] ter Sex Assigned At [facility] Melvina kes - [facility] History SDOH 2020-09-12 2020-09-[address] [facility] - Alcohol Frequency 00:00:00 00:00:00 [facility] Tobacco use and 2020-09-12 2020-09-[address] [facility] St Melvina kes - exposure 00:00:00 00:00:00 [facility] Alcohol intake 2020-09-12 2020-09-[address] [facility] - 00:00:00 00:00:00 non-drinker [facility] Bert r (finding) Smoking Status Start Date Stop Date Source Never smoker [facility] Medications Ordered Filled Start Stop Current Ordering Indication Dosage Frequency Signature Comments Components Source Medication Medication Date Date Medication? Clinician (SIG) Name Name lisinopriL 2019-11 Yes hypertensio 20mg QD Take [address] (PRINIVIL,Z 1-12 n by mouth Luke s - ESTRIL) 20 11:37: daily. Medic al MG tablet 45 Center indapamide 2019-11 Yes hypertensio 2.5mg QD Take 2.[address] (LOZOL) 2.5 1-12 n mg by [facility] - MG tablet 11:37: mouth Medical 45 every Center morning. pantoprazol 2019-11 Yes 40mg QD Take [address] e 1-12 tablet (40 [facility] - (PROTONIX) 00:00: mg total) Me dical 40 MG 00 by mouth Center tablet daily. Triamcinolo Triamcinolo 2018-11 Yes Dee Dee [address] [facility] [facility] ne ne 2-03 [place] applicatio Luke [facility] - Acetonide Acetonide 00:00: n to Mem oria 00 affected l areas [facility] Ferrous Ferrous 2018- Yes Dee Dee [address] Sulfate Sulfate 3-05 [place] [facility] - 00:00: Memoria 00 l [facility] Indapamide Indapamide Yes Dee Dee [address] [facility] in the [facility] - morning [facility] ent [facility] Lisinopril Lisinopril Yes Dee Dee [address] [facility] Immunizations Ordered Immunization Filled Immunization Date Status Commen ts Source Name Name Pneumococcal 2020-09-[address] [facility] Conjugate (Prevnar) 00:00:00 [facility] Vital Signs Vital Name Observation Time Observation Value Comments Source Oxygen saturation in 2020-09-13 08:46:00 97 /min [facility] Arterial blood by Medical Ce nter Pulse oximetry Heart rate 2020-09-13 08:46:00 67 /min [facility] Respiratory rate 2020-09-13 08:46:00 18 /min [facility] Systolic blood 2020-09-13 07:20:00 116 mm[Hg] [facility] Diastolic blood 2020-09-13 07:20:00 56 mm[Hg] [facility] Body temperature 2020-09-13 07:20:00 36.28 Cha [facility] Body height 2020-09-12 02:42:00 154.9 cm [facility] Body weight 2020-09-12 02:42:00 65.318 kg [facility] BMI 2020-09-12 02:42:00 27.21 kg/m2 [facility] Procedures Procedure Date / Time Performing Source Performed Clinician BASIC METABOLIC PANEL (7) 2020-09-[address] [facility] - 04:35:00 Medical Center CBC W/PLT COUNT & AUTO DIFFERENTIAL 2020-09-[address] [facility] - 04:35:00 [facility] MAGNESIUM 2020-09-[address] [facility] - 04:35:00 Medical [place] PHOSPHORUS 2020-09-[address] [facility] - 04:35:00 [facility] ESOPHAGOGASTRODUODENOSCOPY 2020-09-[address] [facility] - (EGD),CONTROL HEMORRHAGE 13:59:00 [facility]CC[facility]LO[facility], STOOL 2020-09-12 [facility], Marbella [facility] - 11:27:00 [facility] MAGNESIUM 2020-09-[facility] [place] [facility] - 04:38:00 [facility] PHOSPHORUS 2020-09-12 [facility], [place] [facility] - 04:38:00 [facility] HEMOGLOBIN A1C 2020-09-12 [facility], [facility] - 04:38:00 [facility] PROTHROMBIN TIME/INR 2020-09-12 [facility], [facility] - 04:38:00 [facility] COMPREHENSIVE METABOLIC PANEL 2020-09-12 [facility] - 04:38:00 [facility] CBC W/PLT COUNT & AUTO DIFFERENTIAL 2020-09-12 [facility], Darriane nna [facility] - 04:38:00 [facility] B-TYPE NATRIURETIC FACTOR (BNP) 2020-09-12 [facility], [facility] - 04:38:00 [facility] TROPONIN I 2020-09-12 [facility], [facility] - 04:38:00 [facility] IRON, TIBC, % SAT. (WITHOUT 2020-09-[address] [facility] - FERRITIN) 04:38:00 [facility] TROPONIN I 2020-09-11 [facility] - 23:52:00 [facility] SARS-COV2/RT-PCR ([facility]) 2020-09-[address] [facility] - 23:13:00 [facility] Plan of Care Planned Activity Planned Date Details Comments Source Future Scheduled 2021-09-13 PNEUMOCOCCAL 65+ [facility] - Test 00:00:00 (2 of 2 - PPSV23) Medical Ce nter [code = PNEUMOCOCCAL 65+ YRS (2 of 2 - PPSV23)] Future Scheduled 2020-11-[address] [facility] - Test 00:00:00 (12+) [code = Medical Center DEPRESSION SCREENING (12+)] Future Scheduled 2020-07-03 INFLUENZA VACCINE (#1) [facility] Test 00:00:00 [code = INFLUENZA Medical Ce nter VACCINE (#1)] Future Scheduled 2020-05-[address] [facility] - Test 00:00:00 WELLNESS (YEAR 2 or Medical Center FIRST YEAR if no IPPE) [code = MEDICARE ANNUAL WELLNESS (YEAR 2 or FIRST YEAR if no IPPE)] Encounters Start End Encounter Admission Attending Care Care Encounter Source Date/Time Date/Time Type Type Clinicians Facility Department ID 2021-04-16 2021-04-16 Outpatient [facility] [id number] [facility] 2021-01-10 2021-01-10 Laboratory Lab, Adc [facility] [id number] 10:49:29 11:09:29 Only Fam b I [facility] [id number] [place] [id number] Professio [id number] nal [address] 2021-01-09 2021-01-09 Outpatient [facility] [id number] [facility] 2021-01-03 2021-01-03 Outpatient [facility] [id number] [facility] 2021-01-03 2021-01-03 [id number] 2020-12-07 2020-12-07 Outpatient [facility] [id number] [facility] 2020-12-05 2020-12-05 Outpatient [facility] [id number] [facility] 2020-10-19 2020-10-19 Outpatient [facility] [id number] [facility] 2020-04-05 2020-04-05 [facility] [id number] 11:00:00 11:00:00 [facility] Outpati [facility] Clinics 2020-01-04 2020-01-04 [facility] [id number] 10:00:00 10:00:00 [facility] Outpat[facility] Clinics 2019-10-04 2019-10-04 [facility] [id number] 10:59:00 10:59:00 [facility] Outpati [facility] Clinics 2019-10-04 2019-10-04 [facility] [id number] 10:00:00 10:00:00 [facility] Outpat[facility] Clinics 2019-07-05 2019-07-05 [facility] [id number] 09[facility]40:00 09:40:00 [facility] Outpati ent Clinics 2019-06-14 2019-06-14 [facility] [id number] 13:33:00 13:33:00 [facility] Outpati [facility] Clinics 2019-05-06 2019-05-06 [facility] [id number] 09:21:00 09:21:00 t [facility] Outpati [facility] Clinics 2019-04-27 2019-04-27 [facility] [id number] 10:00:00 10:00:00 [facility] Outpati ent Clinics 2019-01-10 2019-01-10 [facility] [id number] 16:47:00 16:47:00 [facility] 2019-01-04 2019-01-04 [facility] [id number] 16:12:00 16:12:00 [facility] ent Clinics 2019-01-03 2019-01-03 [facility] [id number] 11:30:00 11:30:00 [facility] 2018-08-09 2018-08-09 [facility] [id number] 22:25:00 22:25:00 [facility] ent Clinics 2018-08-03 2018-08-03 [facility] [id number] 10:30:00 10:30:00 [facility] Results Test Description Test Time Test Comments Results Result Comments Source Basic Metabolic Panel 2020-09-13 06:09:00 Test Item Value Reference Range Interpretation Comme nts Sodium (test code = 135 meq/L 203-454 5742-2) Potassium (test code = 3.6 meq/L 3.6-5.5 2823-3) Chloride (test code = 106 meq/L 98-106 2075-0) CO2 (test code = 8-9) 21 meq/L 20-29 BUN (test code = 3094-0) 9 mg/dL 10-26 L Creatinine (test code = 0.75 mg/dL 0.5-1.2 2160-0) Glucose (test code = 83 mg/dL 70-110 2345-7) Calcium (test code = 8.7 mg/dL 8.5-10.5 10045-7) EGFR (test code = 13758-1) I NSUFFICIENT CLINICAL DATA TO CALCULA TE ESTIMATED GFR. KRISTI (test code = KRISTI) Chromosomal Disorders Counselor ID - ADMINOperator ID - ADMINOperator ID - ADMINOperator ID - ADMINOperator ID - ADMINOperator ID - ADMINOperator ID - ADMINOperator ID - ADMINOperator ID - ADMINOperator ID - ADMIN Lab Interpretation (test Abnormal code = 39080-3) [facility] [id number] 06:09:00 Test Item Value Reference Range Interpretation Comments SODIUM (BEAKER) (test 135 meq/L 135-148 code = 381) POTASSIUM (BEAKER) 3.6 meq/L 3.6-5.5 (test code = 379) CHLORIDE (BEAKER) 106 meq/L 98-106 (test code = 382) CO2 (BEAKER) (test 21 meq/L 20-29 code = 355) BLOOD UREA NITROGEN 9 mg/dL 10-26 L (BEAKER) (test code = 354) CREATININE (BEAKER) 0.75 mg/dL 0.50-1.20 (test code = 358) GLUCOSE RANDOM 83 mg/dL 70-110 (BEAKER) (test code = 652) CALCIUM (BEAKER) 8.7 mg/dL 8.5-10.5 (test code = 697) EGFR (BEAKER) (test INSUFFIC IENT CLINICAL code = 1092) DATA TO CALCULA TE ESTIMATED GFR. Chromosomal Disorders Counselor ID - ADMINOperator ID - ADMINOperator ID - ADMINOperator ID - ADMINOperator ID - ADMINOperator ID - ADMINOperator ID - ADMINOperator ID - ADMINOperator ID - ADMINOperator ID - [id number] 06:07:00 Test Item Value Reference Range Interpretation Comments Magnesium (test code = 1.8 mg/dL 1.5-3 08245-8) KRISTI (test code = KRISTI) Chromosomal Disorders Counselor ID - ADMINOperator ID - ADMINOperator ID - ADMINOperator ID - ADMIN Lab Interpretation Normal (test code = 18823-0) [facility] 06:07:00 Test Item Value Reference Range Interpretation Comments MAGNESIUM (BEAKER) (test code = 1.8 mg/dL 1.5-3.0 627) Chromosomal Disorders Counselor ID - ADMINOperator ID - ADMINOperator ID - ADMINOperator ID - ADMIN [id number] 06:04:00 Test Item Value Reference Range Interpretation Comments Phosphorus (test code = 3.2 mg/dL 2.5-4.5 2777-1) KRISTI (test code = KRISTI) Chromosomal Disorders Counselor ID - ADMIN Lab Interpretation (test Normal code = 31262-0) [facility]2020-[facility]12 06:04:00 Test Item Value Reference Range Interpretation Comments PHOSPHORUS (BEAKER) (test code = 3.2 mg/dL 2.5-4.5 604) Chromosomal Disorders Counselor ID - ADMINCBC with platelet count + automated [id number] 05:46:00 Test Item Value Reference Range Interpretation Comments WBC (test code = 6690-2) 7.4 See_Comment [A utomated message] The system [employer] generated this result transmitted ref erence range: 4.0 - 10 .0 K/L. The refe rence range was not u sed to interpret this result as normal/abnor mal. RBC (test code = 789-8) 4.17 See_Comment [Au tomated message] The system [employer] generated this result transmitted ref erence range: 4.00 - 5 .00 M/L. The refe rence range was not u sed to interpret this result as normal/abnor mal. MCHC (test code = 786-4) 31.4 See_Comment L [A utomated message] The system [employer] generated this result transmitted ref erence range: 32.0 - 3 6.0 GM/DL. The refe rence range was not u sed to interpret this result as normal/abnor mal. Hematocrit (test code = 30.6 % 36-46 L 4544-3) MCV (test code = 787-2) 73.4 fL 82-99 L MCH (test code = 785-6) 23.0 pg 27-33 L RDW (test code = 788-0) 19.8 % 12-15 H Platelets (test code = 471 See_Comment H [Aut omated message] 777-3) The system [employer] generated this result transmitted ref erence range: 150 - 43 0 K/CU MM. The referen ce range was not u sed to interpret this result as normal/abnor mal. MPV (test code = 9.3 fL 6-11.5 11540-4) nRBC (test code = 413) 0 See_Comment [Aut omated message] The system [employer] generated this result transmitted ref erence range: 0 - 0 /1 00 WBC. The refere nce range was not u sed to interpret this result as normal/abnor mal. % Neutros (test code = 52 % 429) % Lymphs (test code = 31 % 430) % Monos (test code = 8 % 431) % Eos (test code = 432) 8 % % Baso (test code = 437) 1 % # Neutros (test code = 3.83 See_Comment [Aut omated message] 670) The system [employer] generated this result transmitted ref erence range: 1.80 - 8 .00 K/L. The refe rence range was not u sed to interpret this result as normal/abnor mal. # Lymphs (test code = 2.32 See_Comment [Auto mated message] 414) The system [employer] generated this result transmitted ref erence range: 1.48 - 4 .50 K/L. The refe rence range was not u sed to interpret this result as normal/abnor mal. # Monos (test code = 0.62 See_Comment [Autom ated message] 415) The system [employer] generated this result transmitted ref erence range: 0.00 - 1 .30 K/L. The refe rence range was not u sed to interpret this result as normal/abnor mal. # Eos (test code = 416) 0.56 See_Comment H [Au tomated message] The system [employer] generated this result transmitted ref erence range: 0.00 - 0 .50 K/L. The refe rence range was not u sed to interpret this result as normal/abnor mal. # Baso (test code = 417) 0.09 See_Comment [A utomated message] The system [employer] generated this result transmitted ref erence range: 0.00 - 0 .20 K/L. The refe rence range was not u sed to interpret this result as normal/abnor mal. Immature 0 % 0-0 Granulocytes-Relative (test code = 2801) Lab Interpretation (test Abnormal code = 70236-6) [facility] W/PLT COUNT & AUTO [id number] 05:46:00 Test Item Value Reference Range Interpretation Comments WHITE BLOOD CELL COUNT (BEAKER) 7.4 K/ L 4.0-10.0 (test code = 775) RED BLOOD CELL COUNT (BEAKER) 4.17 M/ L 4.00-5.00 (test code = 761) HEMOGLOBIN (BEAKER) (test code = 9.6 GM/DL 12.0-15.5 L 410) HEMATOCRIT (BEAKER) (test code = 30.6 % 36.0-46.0 L 411) MEAN CORPUSCULAR VOLUME (BEAKER) 73.4 fL 82.0-99.0 L (test code = 753) MEAN CORPUSCULAR HEMOGLOBIN 23.0 pg 27.0-33.0 L (BEAKER) (test code = 751) MEAN CORPUSCULAR HEMOGLOBIN CONC 31.4 GM/DL 32.0-36.0 L (BEAKER) (test code = 752) RED CELL DISTRIBUTION WIDTH 19.8 % 12.0-15.0 H (BEAKER) (test code = 412) PLATELET COUNT (BEAKER) (test 471 K/CU MM 150-430 H code = 756) MEAN PLATELET VOLUME (BEAKER) 9.3 fL 6.0-11.5 (test code = 754) NUCLEATED RED BLOOD CELLS 0 /100 WBC 0-0 (BEAKER) (test code = 413) NEUTROPHILS RELATIVE PERCENT 52 % (BEAKER) (test code = 429) LYMPHOCYTES RELATIVE PERCENT 31 % (BEAKER) (test code = 430) MONOCYTES RELATIVE PERCENT 8 % (BEAKER) (test code = 431) EOSINOPHILS RELATIVE PERCENT 8 % (BEAKER) (test code = 432) BASOPHILS RELATIVE PERCENT 1 % (BEAKER) (test code = 437) NEUTROPHILS ABSOLUTE COUNT 3.83 K/ L 1.80-8.00 (BEAKER) (test code = 670) LYMPHOCYTES ABSOLUTE COUNT 2.32 K/ L 1.48-4.50 (BEAKER) (test code = 414) MONOCYTES ABSOLUTE COUNT (BEAKER) 0.62 K/ L 0.00-1.30 (test code = 415) EOSINOPHILS ABSOLUTE COUNT 0.56 K/ L 0.00-0.50 H (BEAKER) (test code = 416) BASOPHILS ABSOLUTE COUNT (BEAKER) 0.09 K/ L 0.00-0.20 (test code = 417) IMMATURE GRANULOCYTES-RELATIVE 0 % 0-0 PERCENT (BEAKER) (test code = 2801) SARS-CoV2/RT-PCR (Asymptomatic ONLY)2020-09-12 16:01:00 Test Item Value Reference Range Interpretation Comments SARS-COV2/RT-PCR Negative Not Detected, (test code = Negative, See 48828-0) external report for linked test SARS-COV-2 [facility] DHARMESH PERFORMING LAB (test code = 49760-8) KRISTI (test code = Negative result for this KRISTI) test determines that SARS-CoV-2 RNA was not present in the specimen above the Limit of Detection (LOD). However, Negative results do not preclude SARS-CoV-2 infection and should not be used as the sole basis for treatment or patient management decisions. Negative results must be combined with clinical observations, patient history, and epidemiological information. A false negative result may occur if a specimen is improperly collected, transported or handled. A false negative result should be considered if patient's recent exposures or clinical presentation indicate that COVID-19 (SARS-CoV-2) is likely and diagnostic tests for other causes of illness are negative. Re-testing should be considered in cases of suspected false negatives. The limit of detection for this assay is 800 copies/mL. This SARS CoV-2 test is a real-time RT-PCR test intended for the qualitative detection of nucleic acid from SARS-CoV-2 in a nasopharyngeal swab specimen collected from individuals suspected of COVID-19 by their healthcare provider. This test has not been Food and Drug Administration (FDA) cleared or approved. This is a modified version of an approved Emergency Use Authorization (EUA) and is in the process of review by the FDA. Once authorized by the FDA, the issued EUA will be effective until the declaration that circumstances exist justifying the authorization of the emergency use of in vitro diagnostic tests for detection and/or diagnosis of COVID-19 is terminated under Section 564(b)(2) of the Act or the EUA is revoked under Section 564(g) of the Act. Fact Sheet for Healthcare Providers:https://www.[employer]bit[employer]/sites/default/f alexa/product/documents/F act_Sheet_HC_Providers_L oqh_GBCI-QgY-1.pdf Fact Sheet for Healthcare Patients:https://www.[employer]/sites/default/fi les/product/documents/Fa ct_Sheet_Patients_Lyra_S ARS-CoV-2.pdf Performing Laboratory:[facility] [place] [address] [facility] ([facility])2020-09-12 16:01:00 Test Item Value Reference Range Interpretation Comments SARS-COV2/RT-PCR (test Negative Not Detected, Negative, code = 3654101) See external report for linked test SARS-COV-2 PERFORMING LAB [facility] DH[facility] (test code = 3323785) Negative result for this test determines that SARS-CoV-2 RNA was not present in the specimen above the Limit of Detection (LOD). However, Negative results do not preclude SARS-CoV-2 infection and should not be used as the sole basis for treatment or patient management decisions. Negative results mustbe combined with clinical observations, patient history, and epidemiological information. A false negative result may occur if a specimen is improperly collected, transported or handled. A false negative result should be considered if patient's recent exposures or clinical presentation indicate that COVID-19 (SARS-CoV-2) is likely and diagnostic tests for other causes of illness are negative. Re-testing should be considered in cases of suspected false negatives.The limit of detection for this assay is 800 copies/mL.This SARS CoV-2 test is a real-time RT-PCR test intended for the qualitative detection of nucleic acid from SARS-CoV-2 in a nasopharyngeal swab specimen collected from individuals susp ected of COVID-19 by their healthcare provider.This test has not been Food and Drug Administration (FDA) cleared or approved. This is a modified version of an approved Emergency Use Authorization (EUA) and is in the process of review by the FDA. Once authorized by the FDA, the issued EUA will be effective until the declaration that circumstances exist justifying the authorization of the emergency use of in vitro diagnostic tests for detection and/or diagnosis of COVID-19 is terminated under Section 564(b)(2) of the Act or the EUA is revoked under Section 564(g) of the Act.Fact Sheet for Healthcare Providers:https://www.[employer]/sites/default/files/product/documents/Fact_Shee i_XU_Nhehiguzq_Qliy_SLXD-QlK-2.pdfFact Sheet for Healthcare Patients:https://www.[employer]/sites/default/files/product/ documents/Jltt_Qhuoo_Snwyjeia_Suhj_GEDB-RxY-8.pdfPerforming Laboratory:[facility], [place] [address]A[facility]oo blood, stool 2020-09-12 14:09:00 Test Item Value Reference Range Interpretation Comments Occult blood (test code = 2335-8) Positive Negative A Lab Interpretation (test code = Abnormal 32130-1) [facility] [id number] 14:09:00 Test Item Value Reference Range Interpretation Comments FECAL OCCULT BLOOD (BEAKER) (test Positive Negative A code = 618) Iron, TIBC, % sat. (without ferritin)2020-09-12 10:00:00 Test Item Value Reference Range Interpretation Comments Iron (test code = 33.0 ug/dL 45-170 L 2498-4) TIBC (test code = 433 ug/dL 139-451 6764-7) Iron % Saturation (test 8 % 20-55 L code = 2502-3) KRISTI (test code = KRISTI) Chromosomal Disorders Counselor ID - ADMINOperator ID - ADMIN Lab Interpretation Abnormal (test code = 85922-0) [facility] % SAT. (WITHOUT FERRITIN)2020-09-12 10:00:00 Test Item Value Reference Range Interpretation Comments IRON (BEAKER) (test code = 547) 33.0 ug/dL 45.0-170.0 L TOTAL IRON BINDING CAPACITY 433 ug/dL 250-550 (BEAKER) (test code = 769) IRON % SATURATION (2) (BEAKER) 8 % 20-55 L (test code = 2590) Chromosomal Disorders Counselor ID - ADMINOperator ID - ADMINHemoglobin [id number] 07:32:00 Test Item Value Reference Range Interpretation Comments Hemoglobin A1C (test code 5.8 % 4.3-6.1 = 4548-4) KRISTI (test code = KRISTI) Chromosomal Disorders Counselor ID - ADMIN Lab Interpretation (test Normal code = 93175-1) [facility] [id number] 07:32:00 Test Item Value Reference Range Interpretation Comments HEMOGLOBIN A1C (BEAKER) (test code = 5.8 % 4.3-6.1 368) Chromosomal Disorders Counselor ID - ADMINTroponin [id number] 05:28:00 Test Item Value Reference Range Interpretation Comments Troponin I (test code = 0.05 ng/mL 0-0.15 47796-1) KRISTI (test code = KRISTI) Troponin I (TnI) levels must be interpreted in the context of the presenting symptoms and the clinical findings. Elevated TnI levels indicate myocardial damage, but are not specific for ischemic heart disease. Elevated TnI levels are seen in patients with other cardiac conditions (including myocarditis and congestive heart failure), and slight TnI elevations occur in patients with other conditions, including sepsis, renal failure, acidosis, acute neurological disease, and persistent tachyarrhythmia.Opera tor ID - ADMIN Lab Interpretation (test Normal code = 35156-1) [facility] [id number] 05:28:00 Test Item Value Reference Range Interpretation Comments TROPONIN I (BEAKER) (test code = 0.05 ng/mL 0.00-0.15 397) Troponin I (TnI) levels must be interpreted in the context of the presenting symptoms and the clinical findings. Elevated TnI levels indicate myocardial damage, but are not specific for ischemic heart disease. Elevated TnI levels are seen in patients with other cardiac conditions (including myocarditis and congestive heart failure), and slight TnI elevations occur in patients with other conditions, including sepsis, renal failure, acidosis, acute neurological disease, and persistent tachyarrhythmia.Chromosomal Disorders Counselor ID - ADMINComprehensive metabolic [id number] 05:22:00 Test Item Value Reference Range Interpretation Comments Protein, Total 6.7 See_Comment [Automated (test code = message] The 2885-2) system which generated this result transmit shiva reference range : 6.0 - 8.5 gm/dL . The reference range was not u sed to interpret th is result as normal/abnormal . Albumin (test code 3.7 g/dL 3.5-5 = 18523-4) Alkaline 76 U/L 30-115 Phosphatase (test code = 6768-6) Total Bilirubin 0.8 mg/dL 0.1-1.2 (test code = 1975-2) Sodium (test code 136 meq/L 135-148 = 2951-2) Potassium (test 3.8 meq/L 3.6-5.5 code = 2823-3) Chloride (test 104 meq/L 98-106 code = 2075-0) CO2 (test code = 21 meq/L -2027-) BUN (test code = 12 mg/dL 10- 3094-0) Creatinine (test 0.77 mg/dL 0.5-1.2 code = 2160-0) Glucose (test code 88 mg/dL 70-110 = 2345-7) Calcium (test code 9.1 mg/dL 8.5-10.5 = 05867-9) AST (test code = 17 U/L -40 1920-8) ALT (test code = 10 U/L -50 1742-6) EGFR ([place] = [place] [address]-9) CLINICAL DATA T O CALCULATE ESTIMATED GFR. KRISTI (test code = Chromosomal Disorders Counselor ID - KRISTI) ADMINOperator ID - ADMINOperator ID - ADMINOperator ID - ADMINOperator ID - ADMINOperator ID - ADMINOperator ID - ADMINOperator ID - ADMINOperator ID - ADMINOperator ID - ADMINOperator ID - ADMINOperator ID - ADMINOperator ID - ADMINOperator ID - ADMINOperator ID - ADMINOperator ID - ADMIN [facility] Nat[facility]ure[facility] Factor (BNP)2020-09-12 05:22:00 Test Item Value Reference Range Interpretation Comments BNP (test code = 64222-0) 555 pg/mL 0-100 H KRISTI (test code = KRISTI) Chromosomal Disorders Counselor ID - ADMIN Lab Interpretation (test Abnormal code = 07531-1) [facility] NAT[facility] (BNP)2020-09-12 05:22:00 Test Item Value Reference Range Interpretation Comments B-TYPE NATRIURETIC PEPTIDE (BEAKER) 555 pg/mL 0-100 H (test code = 700) Chromosomal Disorders Counselor ID - ADMINCOMPREHENSIVE METABOLIC [id number] 05:22:00 Test Item Value Reference Range Interpretation Comments TOTAL PROTEIN 6.7 gm/dL 6.0-8.5 (BEAKER) (test code = 770) ALBUMIN (BEAKER) 3.7 g/dL 3.5-5.0 (test code = 1145) ALKALINE PHOSPHATASE 76 U/L 30-115 (BEAKER) (test code = 346) BILIRUBIN TOTAL 0.8 mg/dL 0.1-1.2 (BEAKER) (test code = 377) SODIUM (BEAKER) (test 136 meq/L 135-148 code = 381) POTASSIUM (BEAKER) 3.8 meq/L 3.6-5.5 (test code = 379) CHLORIDE (BEAKER) 104 meq/L 98-106 (test code = 382) CO2 (BEAKER) (test 21 meq/L 20-29 code = 355) BLOOD UREA NITROGEN 12 mg/dL 10-26 (BEAKER) (test code = 354) CREATININE (BEAKER) 0.77 mg/dL 0.50-1.20 (test code = 358) GLUCOSE RANDOM 88 mg/dL 70-110 (BEAKER) (test code = 652) CALCIUM (BEAKER) 9.1 mg/dL 8.5-10.5 (test code = 697) AST (SGOT) (BEAKER) 17 U/L 5-40 (test code = 353) ALT (SGPT) (BEAKER) 10 U/L 5-50 (test code = 347) EGFR (BEAKER) (test INSUFFIC IENT CLINICAL code = 1092) DATA TO CALCULA TE ESTIMATED GFR. Chromosomal Disorders Counselor ID - ADMINOperator ID - ADMINOperator ID - ADMINOperator ID - ADMINOperator ID - ADMINOperator ID - ADMINOperator ID - ADMINOperator ID - ADMINOperator ID - ADMINOperator ID - ADMINOperator ID- ADMINOperator ID - ADMINOperator ID - ADMINOperator ID - ADMINOperator ID - ADMINOperator ID - ADMI NProthrombin [id number] 05:18:00 Test Item Value Reference Interpretation Comments Range Protime (test code = 11.3 See_Comment Final 5902-2) Information (Auto Output) [Automated message] The system which generated this result transmitted reference range : 9.3 - 12.0 seconds. The reference range was not used to interpret this result as normal/abnormal . INR (test code = 1.04 See_Comment Final 6301-6) Information (Auto Output) [Automated message] The system which generated this result transmitted reference range : <=5.90. The reference range was not used to interpret this result as normal/abnormal . KRISTI (test code = RECOMMENDED KRISTI) COUMADIN/WARFARIN INR THERAPY RANGESSTANDARD DOSE: 2.0 - 3.0 Includes: PROPHYLAXIS for venous thrombosis, systemic embolization; TREATMENT for venous thrombosis and/or pulmonary embolus.HIGH RISK: Target INR is 2.5-3.5 for patients with mechanical heart valves. Lab Interpretation Normal (test code = 28877-0) [facility] CenterPROTHROMBIN TIME/[id number] 05:18:00 Test Item Value Reference Range Interpretation Comments PROTIME (BEAKER) 11.3 seconds 9.3-12.0 Final Infor mation (test code = 759) (Auto Outp ut) INR (BEAKER) (test 1.04 <=5.90 Final Inf ormation code = 370) (Auto Output) RECOMMENDED COUMADIN/WARFARIN INR THERAPY RANGESSTANDARD DOSE: 2.0 - 3.0 Includes: PROPHYLAXIS forvenous thrombosis, systemic embolization; TREATMENT for venous thrombosis and/or pulmonary embolus.HIGH RISK: Target INR is 2.5-3.5 for patients with mechanical heart valves.[id number] 05:17:00 Test Item Value Reference Range Interpretation Comments MAGNESIUM (BEAKER) (test code = 1.6 mg/dL 1.5-3.0 627) Chromosomal Disorders Counselor ID - ADMINOperator ID - ADMINOperator ID - ADMINOperator ID - ADMIN [id number] 05:14:00 Test Item Value Reference Range Interpretation Comments PHOSPHORUS (BEAKER) (test code = 3.3 mg/dL 2.5-4.5 604) Chromosomal Disorders Counselor ID - ADMINCBC W/PLT COUNT & AUTO [id number] 05:10:00 Test Item Value Reference Range Interpretation Comments WHITE BLOOD CELL COUNT (BEAKER) 7.7 K/ L 4.0-10.0 (test code = 775) RED BLOOD CELL COUNT (BEAKER) 3.91 M/ L 4.00-5.00 L (test code = 761) HEMOGLOBIN (BEAKER) (test code = 9.1 GM/DL 12.0-15.5 L 410) HEMATOCRIT (BEAKER) (test code = 28.7 % 36.0-46.0 L 411) MEAN CORPUSCULAR VOLUME (BEAKER) 73.4 fL 82.0-99.0 L (test code = 753) MEAN CORPUSCULAR HEMOGLOBIN 23.3 pg 27.0-33.0 L (BEAKER) (test code = 751) MEAN CORPUSCULAR HEMOGLOBIN CONC 31.7 GM/DL 32.0-36.0 L (BEAKER) (test code = 752) RED CELL DISTRIBUTION WIDTH 19.4 % 12.0-15.0 H (BEAKER) (test code = 412) PLATELET COUNT (BEAKER) (test 482 K/CU MM 150-430 H code = 756) MEAN PLATELET VOLUME (BEAKER) 8.9 fL 6.0-11.5 (test code = 754) NUCLEATED RED BLOOD CELLS 0 /100 WBC 0-0 (BEAKER) (test code = 413) NEUTROPHILS RELATIVE PERCENT 46 % (BEAKER) (test code = 429) LYMPHOCYTES RELATIVE PERCENT 39 % (BEAKER) (test code = 430) MONOCYTES RELATIVE PERCENT 8 % (BEAKER) (test code = 431) EOSINOPHILS RELATIVE PERCENT 6 % (BEAKER) (test code = 432) BASOPHILS RELATIVE PERCENT 1 % (BEAKER) (test code = 437) NEUTROPHILS ABSOLUTE COUNT 3.55 K/ L 1.80-8.00 (BEAKER) (test code = 670) LYMPHOCYTES ABSOLUTE COUNT 2.99 K/ L 1.48-4.50 (BEAKER) (test code = 414) MONOCYTES ABSOLUTE COUNT (BEAKER) 0.61 K/ L 0.00-1.30 (test code = 415) EOSINOPHILS ABSOLUTE COUNT 0.48 K/ L 0.00-0.50 (BEAKER) (test code = 416) BASOPHILS ABSOLUTE COUNT (BEAKER) 0.09 K/ L 0.00-0.20 (test code = 417) IMMATURE GRANULOCYTES-RELATIVE 0 % 0-0 PERCENT (BEAKER) (test code = 2801) TROPONIN [id number] 00:20:00 Test Item Value Reference Range Interpretation Comments TROPONIN I (BEAKER) (test code = 0.07 ng/mL 0.00-0.15 397) Troponin I (TnI) levels must be interpreted in the context of the presenting symptoms and the clinical findings. Elevated TnI levels indicate myocardial damage, but are not specific for ischemic heart disease. Elevated TnI levels are seen in patients with other cardiac conditions (including myocarditis and congestive heart failure), and slight TnI elevations occur in patients with other conditions, including sepsis, renal failure, acidosis, acute neurological disease, and persistent tachyarrhythmia.Chromosomal Disorders Counselor ID - ADMIN
--- NOTE | 2021-05-01 15:57 | ER ---
Nurse's Notes [facility] Name: Harpreet Salazar Age: 85 yrs Sex: Female : 1935 Arrival Date: 05/01/2021 Time: 15:19 Bed DX4 Private MD: Diagnosis: Local infection of the skin and subcutaneous tissue, unspecified Presentation: 05/01 15:19 Chief complaint: Patient states: Cut right pointer finger about a month ago, put liquid jl7 Band-Aid on it, went to [place] and they gave her a tetanus shot and antibiotics that she did not finish due to allergic reaction. Laceration is healed, pt reports continued pain at site. Currently taking doxycycline from [facility]. Coronavirus screen: Client denies travel out of the [place] in the last 14 days. At this time, the client does not indicate any symptoms associated with coronavirus-19. Ebola Screen: No symptoms or risks identified at this time. Initial Sepsis Screen: Does the patient meet any 2 criteria? No. Patient's initial sepsis screen is negative. Does the patient have a suspected source of infection? No. Patient's initial sepsis screen is negative. Risk Assessment: Do you want to hurt yourself or someone else? Patient reports no desire to harm self or others. Onset of symptoms was March 2021. Care prior to arrival: None. 15:19 Method Of Arrival: Ambulatory [facility] 15:19 Acuity: NÉSTOR 4 jl7 Historical: - Allergies: 15:27 Bactrim; jl7 - PMHx: 15:27 Hypertension; jl7 - PSHx: 15:27 hysterectomy; jl7 - Immunization history:: Adult Immunizations up to date, Client reports receiving the 2nd dose of the Covid vaccine. - Social history:: Smoking status: Patient denies any tobacco usage or history of. Screenin:02 Abuse screen: Denies threats or abuse. Denies injuries from another. Nutritional ss screening: No deficits noted. Tuberculosis screening: Never had TB. Fall Risk None identified. Assessment: 16:02 General: Appears in no apparent distress. comfortable, Behavior is calm, cooperative. ss Pain: Pain currently is 3 out of 10 on a pain scale. Quality of pain is described as tender, Is continuous. Neuro: Level of Consciousness is awake, alert, obeys commands, Oriented to person, place, time, situation. Cardiovascular: Capillary refill < 3 seconds is brisk in bilateral. Respiratory: Airway is patent Respiratory effort is even, unlabored, Respiratory pattern is regular, symmetrical. GI: Patient currently denies abdominal pain, diarrhea, nausea, vomiting. EENT: Oral mucosa is moist. Throat is clear. Derm: Skin is intact, is healthy with good turgor, Skin is dry, Skin is pink, warm \T\ dry. normal. Musculoskeletal: Circulation, motion, and sensation intact. Range of motion: Swelling absent. Vital Signs: 15:19 BP 121 / 56; Pulse 81; Resp 17; Temp 98.8; Pulse Ox 99% ; Weight 63.5 kg; Pain 3/10; jl7 ED Course: 15:19 Patient arrived in ED. jl7 15:19 Landon Abrams, RN is Primary Nurse. jl7 15:27 Triage completed. jl7 15:27 Arm band placed on right wrist. jl7 15:36 Jayesh Soto PA is PHCP. jr8 15:36 Ervin Watkins MD is Attending Physician. jr8 15:53 Britta Beauchamp, LONNIE is Primary Nurse. ss 15:56 Jairo Spicer MD is Referral Physician. jr8 16:10 No provider procedures requiring assistance completed. Patient did not have IV access ss during this emergency room visit. 16:11 Patient has correct armband on for positive identification. ss Administered Medications: No medications were administered Outcome: 15:56 Discharge ordered by . jr8 16:10 Discharged to home ambulatory. ss 16:10 Condition: good 16:10 Discharge instructions given to patient, Instructed on discharge instructions, follow up and referral plans. Demonstrated understanding of instructions, follow-up care. 16:11 Patient left the ED. ss Signatures: Britta Beauchamp RN RN Jayesh Soto PA PA jr8 Landon Abrams RN RN jl7
--- NOTE | 2021-05-01 15:58 | EDPHYS ---
Physician Documentation [facility] Name: Harpreet Salazar Age: 85 yrs Sex: Female : 1935 Arrival Date: 05/01/2021 Time: 15:19 Bed DX4 Private MD: ED Physician Ervin Watkins HPI: 05/01 15:52 This 85 yrs old Female presents to ER via Ambulatory with complaints of pain jr8 to right index finger. 15:52 Associated signs and symptoms: The patient has no apparent associated signs or jr8 symptoms. Severity of symptoms: At their worst the symptoms were mild. The patient has not experienced similar symptoms in the past. The patient has been recently seen by a physician:. Patient stated that she lacerated tip of finger about 1 month ago. Utilized liquid bandaid at that time. Has been put on two rounds of Abx since then and had tetanus. Stated that she came today for continued pain. Historical: - Allergies: 15:27 Bactrim; jl7 - PMHx: 15:27 Hypertension; jl7 - PSHx: 15:27 hysterectomy; jl7 - Immunization history:: Adult Immunizations up to date, Client reports receiving the 2nd dose of the Covid vaccine. - Social history:: Smoking status: Patient denies any tobacco usage or history of. ROS: 15:52 Constitutional: Negative for fever, chills, and weight loss. jr8 15:52 MS/extremity: Positive for pain, swelling, of the right index finger . 15:52 All other systems are negative. Exam: 15:52 Constitutional: This is a well developed, well nourished patient who is awake, alert, jr8 and in no acute distress. Cardiovascular: Regular rate and rhythm with a normal S1 and S2. No gallops, murmurs, or rubs. Normal PMI, no JVD. No pulse deficits. Respiratory: Lungs have equal breath sounds bilaterally, clear to auscultation and percussion. No rales, rhonchi or wheezes noted. No increased work of breathing, no retractions or nasal flaring. Skin: Warm, dry with normal turgor. Normal color with no rashes, no lesions, and no evidence of cellulitis. Neuro: Awake and alert, GCS 15, oriented to person, place, time, and situation. Cranial nerves II-XII grossly intact. Motor strength 5/5 in all extremities. Sensory grossly intact. 15:52 Musculoskeletal/extremity: Extremities: grossly normal except: noted in the right index finger : swelling, ROM: intact in all extremities, full active range of motion, full passive range of motion, Circulation is intact in all extremities. Sensation intact. Vital Signs: 15:19 BP 121 / 56; Pulse 81; Resp 17; Temp 98.8; Pulse Ox 99% ; Weight 63.5 kg; Pain 3/10; jl7 MDM: 15:36 Patient medically screened. jr8 15:54 Data reviewed: vital signs, nurses notes, and as a result, I will discharge patient. jr8 Data interpreted: Pulse oximetry: on room air is 99 %. Interpretation: normal. Counseling: I had a detailed discussion with the patient and/or guardian regarding: the historical points, exam findings, and any diagnostic results supporting the discharge/admit diagnosis, the need for outpatient follow up, a hand specialist, to return to the emergency department if symptoms worsen or persist or if there are any questions or concerns that arise at home. ED course: Discussed with patient that there is no significant signs of cellulitis. Would recommenced f/u with hand for now. Knows to come back if worse . Administered Medications: No medications were administered Disposition: 05/02 08:42 Co-signature as Attending Physician, Ervin Watkins MD I agree with the assessment and kdr plan of care. Disposition Summary: 05/01/21 15:56 Discharge Ordered Location: Home jr8 Problem: new jr8 Symptoms: have improved jr8 Condition: Stable jr8 Diagnosis - Local infection of the skin and subcutaneous tissue, unspecified jr8 Followup: jr8 - With: Jairo Spicer MD - When: 1 week - Reason: Recheck today's complaints, Continuance of care, Re-evaluation by your physician Discharge Instructions: - Discharge Summary Sheet jr8 - Skin Abscess jr8 - Cellulitis, Adult jr8 Forms: - Medication Reconciliation Form jr8 - Thank You Letter jr8 - Antibiotic Education jr8 - Prescription Opioid Use jr8 Signatures: Ervin Watkins MD MD kdr Roszak, Josh, PA PA jr8 Landon Abrams RN RN jl7
[2021-05-01 16:16] VITALS: BP 121/56; TEMP 98.8; O2SAT 99
== END 2021-05-01 16:11 | disposition home or self-care (01) ==
LOC: ER 14:51
DX: L08.9 Local infection of the skin and subcutaneous tissue, unspecified (principal); I10 Essential (primary) hypertension; Z88.1 Allergy status to other antibiotic agents

== ENCOUNTER 2022-10-25 12:14 | Emergency (ER) | payer OTHER ==
--- OUTSIDE RECORDS SUMMARY | 2022-10-25 12:18 | XMS REPORT | Continuity of Care Document ---
:1935 Author Organization [facility] t Address [address] [place] [address] Care Team Providers Name Role Phone DEE DEE MCKINNEY Primary Care Physician Unavailable Tez Wagner Attending Clinician Unavailable Francesco Pyle Attending Clinician Unavailable Dee Dee Mckinney Attending Clinician Unavailable JOCELYN GUZMAN Attending Clinician Unavailable Lab, Adc Fam Pob I Attending Clinician Unavailable Calista Lester Attending Clinician CALISTA MONTIEL Attending Clinician Unavailable JOCELYN GUZMAN Admitting Clinician Unavailable TOSHIA GANT Admitting Clinician Unavailable Payers Payer Name Policy Type Policy Number Effective Date Expiration Date S ource UNITED MEDICARE [id number] [place] [address] [id number] 2020 Common HEALTHCARE DUAL 00:00:00 Spirit - [facility] Dual C1 [id number] Common Complete [facility] Spirit - [facility] Dual C1 [id number] Common Complete MCR [facility] Problems Condition Condition Condition Status Onset Resolution Last Treating Co mments Source Name Details Category Date Date Treatment Clinician Date Severe Severe Disease Active 2019-[address] [facility] Hypertensi Hypertensi Disease Active 2019-[address] [facility]12 [facility] Upper GI Upper GI Disease Active 2019-11 [facility] bleed bleed [facility] Anemia Anemia Disease Active 2019-11 Overview[facility]: g of this 00 note Center might be different from the original. Added automatic ally from request for surgery [id number] Hyperglyce Problem Com mon hortencia [facility] Seasonal Seasonal Problem Commo n allergy allergies [facility] [id number] Lower Problem Common abdominal [facility] pain [facility] [id number] Essential Problem Comm on hypertensi Spirit on [facility] [id number] Electrolyt Problem Co mmon e Spirit abnormalit [facility] y [facility] [id number] History of Problem Co mmon ovarian Spirit cyst [facility] [id number] Abnormal Problem Comm on CBC [facility] Iron Iron Problem Common deficiency deficiency Sp jing anemia anemia [facility] [id number] Prediabete Problem Co mmon s [facility] [id number] S/P Problem Common hysterecto [facility] my [facility] [id number] Bilateral Problem Comm on hearing Spirit loss, - [facility] unspecifie d hearing [facility] loss type [facility] [place] [id number] Chest Problem Common pain, [facility] unspecifie [facility] d type [facility] [id number] Hypomagnes Problem Co mmon emia [facility] [id number] Depression Problem Co mmon screening [facility] [id number] Hypokalemi Problem Com mon a [facility] [id number] Ingrown Problem Commo n toenail [facility] [id number] Rash and Problem Comm on nonspecifi Spirit c skin - CHI eruption [facility] Allergies, Adverse Reactions, Alerts Allergy Allergy Status Severity Reaction(s) Onset Inactive Treating Comm ents Source Name Type Date Date Clinician NO KNOWN Drug Active Univers ALLERGIE Class ity of [facility] NO KNOWN Allergy Active [facility] Social History Social Habit Start Date Stop Date Quantity Comments Source History of Common Spirit - Tobacco Use [facility] Exposure to Yes University of SARS-CoV-2 [place] [facility] (event) Branch History SDOH [facility] Alcohol Std Medical Cente r Drinks History SDOH [facility] Alcohol Binge Medical [address] [facility] History SDOH [facility] Alcohol Comment Medical C enter Tobacco use and 2020-09-12 2020-09-[address] [facility] exposure 00:00:00 00:00:00 [facility] Alcohol intake 2020-09-12 2020-09-[address] [facility] 00:00:00 00:00:00 non-drinker Medical Cente r (finding) History SDOH 2020-09-12 2020-09-[address] [facility] Alcohol Frequency 00:00:00 00:00:00 [facility] Sex Ass[birth year] At [birth year] [facility] kes 00:00:00 00:00:00 [facility] Smoking Status Start Date Stop Date Source Unknown if ever smoked [facility] y [facility] Never Smoker [facility] - [facility] Medications Ordered Filled Start Stop Current Ordering Indication Dosage Frequency Signature Comments Components Source Medication Medication Date Date Medication? Clinician (SIG) Name Name Magnesium Magnesium 2020-11- No 1{table QD Magnesium Oxide 400 Oxide 400 11-04 t_as_ne Oxide 400 MG MG 00:00: 00:00 eded} MG 00 :00 Magnesium Magnesium 2020- No QD Magnesium Chloride 64 Chloride 64 7-07 10-05 Chloride MG MG 00:00: 00:00 64 MG 00 :00 lisinopriL 2019-11 Yes hypertensio 20mg QD Take [address] (PRINIVIL,Z 1-12 n by mouth Luke s ESTRIL) 20 11:37: daily. Medic al MG tablet 45 Center indapamide 2019-11 Yes hypertensio 2.5mg QD Take 2.[address] (LOZOL) 2.5 1-12 n mg by [facility] MG tablet 11:37: mouth Medical 45 every Center morning. pantoprazol 2019-11 Yes 40mg QD Take [address] e 1-12 tablet (40 [facility] (PROTONIX) 00:00: mg total) Me dical 40 MG 00 by mouth Center tablet daily. Triamcinolo Triamcinolo 2018-11 Yes Dee Dee 1 Common ne ne 2-03 Millender applicatio Spir it Acetonide Acetonide 00:00: n to - C HI 00 affected [facility] Ferrous Ferrous Yes Dee Dee 1 tablet Co mmon Sulfate Sulfate 3-05 Millender Spir it 00:00: - [facility]I 00 [facility] Indapamide Indapamide Yes Dee Dee 1 tablet Common Millender in the Spirit morning [facility] Lisinopril Lisinopril Yes Dee Dee 1 tablet Common [facility] Spirit [facility] Ferrous Ferrous No 1{table BID Ferrous Sulfate 325 Sulfate 325 t} Sulfate (65 Fe) MG (65 Fe) MG 325 (65 Fe) MG Colace 100 Colace 100 No 1{capsu QD Colace 100 MG MG le_as_n MG eeded} Lisinopril Lisinopril No Lisinopril 20 MG 20 MG 20 MG Indapamide Indapamide No 1{table QD Indapamide 2.5 MG 2.5 MG t_in_th 2.5 MG e_morni ng} Lisinopril Lisinopril No 1{table QD Lisinopril 20 MG 20 MG t} 20 MG Lisinopril Lisinopril No 1{table QD Lisinopril 20 MG 20 MG t} 20 MG Indapamide Indapamide No 1{table QD Indapamide 2.5 MG 2.5 MG t_in_th 2.5 MG e_morni ng} Colace 100 Colace 100 No 1{capsu QD Colace 100 MG MG le_as_n MG eeded} Lisinopril Lisinopril No Lisinopril 20 MG 20 MG 20 MG Lisinopril Lisinopril No Lisinopril 20 MG 20 MG 20 MG Indapamide Indapamide No 1{table QD Indapamide 2.5 MG 2.5 MG t_in_th 2.5 MG e_morni ng} Colace 100 Colace 100 No 1{capsu QD Colace 100 MG MG le_as_n MG eeded} Lisinopril Lisinopril No 1{table QD Lisinopril 20 MG 20 MG t} 20 MG Colace 100 Colace 100 No 1{capsu QD Colace 100 MG MG le_as_n MG eeded} Magnesium Magnesium No Magnesium Lisinopril Lisinopril No 1{table QD Lisinopril 20 MG 20 MG t} 20 MG Lisinopril Lisinopril No Lisinopril 20 MG 20 MG 20 MG Indapamide Indapamide No 1{table QD Indapamide 2.5 MG 2.5 MG t_in_th 2.5 MG e_morni ng} Lisinopril Lisinopril No 1{table QD Lisinopril 20 MG 20 MG t} 20 MG Colace 100 Colace 100 No 1{capsu QD Colace 100 MG MG le_as_n MG eeded} Magnesium Magnesium No Magnesium Indapamide Indapamide No 1{table QD Indapamide 2.5 MG 2.5 MG t_in_th 2.5 MG e_morni ng} Lisinopril Lisinopril No Lisinopril 20 MG 20 MG 20 MG Indapamide Indapamide No 1{table QD Indapamide 2.5 MG 2.5 MG t_in_th 2.5 MG e_morni ng} Colace 100 Colace 100 No 1{capsu QD Colace 100 MG MG le_as_n MG eeded} Lisinopril Lisinopril No 1{table QD Lisinopril 20 MG 20 MG t} 20 MG Ferrous Ferrous No 1{table BID Ferrous Sulfate 325 Sulfate 325 t} Sulfate (65 Fe) MG (65 Fe) MG 325 (65 Fe) MG Ferrous Ferrous No 1{table BID Ferrous Sulfate 325 Sulfate 325 t} Sulfate (65 Fe) MG (65 Fe) MG 325 (65 Fe) MG Indapamide Indapamide No 1{table QD Indapamide 2.5 MG 2.5 MG t_in_th 2.5 MG e_morni ng} Lisinopril Lisinopril No Lisinopril 20 MG 20 MG 20 MG Colace 100 Colace 100 No 1{capsu QD Colace 100 MG MG le_as_n MG eeded} Immunizations Ordered Immunization Filled Immunization Date Status Commen ts Source Name Name FluAD Flu 2021-08-08 Completed [facility] 13:55:00 - [facility] FluAD FluAD 2021-08-08 Completed [facility] 13:55:00 - [facility] FluAD Flu 2021-08-08 Completed [facility] 13:55:00 - [facility] FluAD FluAD 2021-08-08 Completed [facility] 13:55:00 - [facility] FluAD FluAD 2021-08-08 Completed [facility] 13:55:00 - [facility] FluAD FluAD 2021-08-08 Completed [facility] 13:55:00 [facility] Pneumococcal 2020-09-13 Completed [facility] Conjugate (Prevnar) 00:00:00 [facility] 13-Valent Vital Signs Vital Name Observation Time Observation Value Comments Source HEIGHT 2020-09-12 02:42:00 154.9 cm WEIGHT 2020-09-12 02:42:00 65.318 kg WEIGHT 2020-09-11 20:56:00 65.454 kg height 2022-09-04 10:00:00 60.0 [in_i] [facility] weight 2022-09-04 10:00:00 143.3 [lb_av] [facility] temperature 2022-09-04 10:00:00 97.4 [degF] [facility] bmi 2022-09-04 10:00:00 27.98 kg/m2 [facility] oximetry 2022-09-04 10:00:00 96 % [facility] respiratory rate 2022-09-04 10:00:00 17 /min Comm on [facility] blood pressure 2022-09-04 10:00:00 144 mm[Hg] Common [facility] - systolic [facility] blood pressure 2022-09-04 10:00:00 62 mm[Hg] Common [facility] - diastolic [facility] height 2022-05-06 14:50:00 60.0 [in_i] [facility] 2022-05-06 14:50:00 143.4 [lb_av] Common [facility] temperature 2022-05-06 14:50:00 98.4 [degF] Common S pirit [facility] bmi 2022-05-06 14:50:00 28 kg/m2 Common S [facility] oximetry 2022-05-06 14:50:00 98 % Common [facility] respiratory rate 2022-05-06 14:50:00 17 /min Comm on [facility] blood pressure 2022-05-06 14:50:00 131 mm[Hg] Common [facility] - systolic [facility] blood pressure 2022-05-06 14:50:00 60 mm[Hg] Common [facility] - diastolic [facility] height 2021-12-26 13:10:00 60.00 [in_i] Common [facility] weight 2021-12-26 13:10:00 143.1 [lb_av] [facility] temperature 2021-12-26 13:10:00 97.4 [degF] Common [facility] bmi 2021-12-26 13:10:00 27.94 kg/m2 [facility] oximetry 2021-12-26 13:10:00 97 % Common [facility] respiratory rate 2021-12-26 13:10:00 17 /min Comm on [facility] blood pressure 2021-12-26 13:10:00 113 mm[Hg] [facility] - systolic [facility] blood pressure 2021-12-26 13:10:00 56 mm[Hg] Common [facility] - diastolic [facility] height 2021-12-26 13:30:00 60.0 [in_i] Common [facility] weight 2021-12-26 13:30:00 143.1 [lb_av] Common [facility] temperature 2021-12-26 13:30:00 97.4 [degF] Common [facility] bmi 2021-12-26 13:30:00 27.94 kg/m2 [facility] oximetry 2021-12-26 13:30:00 97 % [facility] blood pressure 2021-12-26 13:30:00 113 mm[Hg] [facility] - systolic [facility] blood pressure 2021-12-26 13:30:00 56 mm[Hg] [facility] - diastolic [facility] height 2021-09-04 13:20:00 60.00 [in_i] [facility] weight 2021-09-04 13:20:00 146 [lb_av] [facility] temperature 2021-09-04 13:20:00 98 [degF] [facility] bmi 2021-09-04 13:20:00 28.51 kg/m2 [facility] blood pressure 2021-09-04 13:20:00 132 mm[Hg] Common [facility] - systolic [facility] blood pressure 2021-09-04 13:20:00 70 mm[Hg] Common [facility] - diastolic [facility] respiratory rate 2021-08-08 13:20:00 16 /min Comm on [facility] blood pressure 2021-08-08 13:20:00 138 mm[Hg] [facility] - systolic [facility] blood pressure 2021-08-08 13:20:00 63 mm[Hg] [facility] - diastolic [facility] height 2021-08-08 13:20:00 60.00 [in_i] Common [facility] weight 2021-08-08 13:20:00 140.2 [lb_av] Common [facility] temperature 2021-08-08 13:20:00 97.9 [degF] Common [facility] bmi 2021-08-08 13:20:00 27.38 kg/m2 [facility] oximetry 2021-08-08 13:20:00 97 % [facility] height 2021-05-08 14:50:00 60.00 [in_i] [facility] weight 2021-05-08 14:50:00 140.9 [lb_av] [facility] temperature 2021-05-08 14:50:00 98.1 [degF] [facility] bmi 2021-05-08 14:50:00 27.51 kg/m2 [facility] oximetry 2021-05-08 14:50:00 99 % [facility] respiratory rate 2021-05-08 14:50:00 17 /min Comm on [facility] blood pressure 2021-05-08 14:50:00 124 mm[Hg] Common [facility] - systolic [facility] blood pressure 2021-05-08 14:50:00 58 mm[Hg] Common [facility] - diastolic [facility] HEIGHT 2020-09-12 02:42:00 154.9 cm WEIGHT 2020-09-12 02:42:00 65.318 kg WEIGHT 2020-09-11 20:56:00 65.454 kg Procedures This patient has no known procedures. Plan of Care Planned Activity Planned Date Details Comments Source Future Scheduled 2022-07-03 INFLUENZA VACCINE (#1) [facility] 00:[facility]00 [code = INFLUENZA Medical Ce nter VACCINE (#1)] Future Scheduled 2021-11-[address] [facility] Test 00:00:00 (12+) [code = Medical Center DEPRESSION SCREENING (12+)] Future Scheduled 2021-11-02 FALLS RISK SCREENING [facility] Test 00:00:00 [code = FALLS RISK Medical C enter SCREENING] Future Scheduled 2021-09-13 PNEUMOCOCCAL 65+ YRS [facility] Test 00:00:00 (2 - PPSV23 or PCV20) [facility] [code = PNEUMOCOCCAL 65+ YRS (2 - PPSV23 or PCV20)] Future Scheduled 2021-09-[address] [facility] Test 00:00:00 Counseling and Medical Cente r Screening (12+) [code = Tobacco Cessation Counseling and Screening (12+)] Future Scheduled 2020-05-[address] [facility] Test 00:00:00 WELLNESS (YEAR 2 or Medical Center FIRST YEAR if no IPPE) [code = MEDICARE ANNUAL WELLNESS (YEAR 2 or FIRST YEAR if no IPPE)] Future Scheduled 1985 SHINGLES VACCINES ([address] [facility] Test 00:00:00 of 2) [code = SHINGLES Medic al Center VACCINES (1 of 2)] Future Scheduled 1954 DTAP/TDAP/TD VACCINES [facility] 00:00:00 (1 - Tdap) [code = Medical C enter DTAP/TDAP/TD VACCINES (1 - Tdap)] Future Scheduled 1936-04-09 COVID-19 VACCINE (#1) [facility] 00:00:00 [code = COVID-[address] VACCINE (#1)] Encounters Start End Encounter Admission Attending Care Care Encounter Source Date/Time Date/Time Type Type Clinicians Facility Department ID 2022-09-02 Outpatient Wagner, [facility] [id number] Common 13:24:00 Tez [id number] [facility] 2021-12-26 Outpatient Wagner, [facility] [id number] Common 12:56:00 Tez [facility] 2021-11-27 Outpatient Wagner, [facility] [id number] Common 14:10:49 Tez [id number] [facility] 2021-11-27 Outpatient Wagner, [facility] [id number] Common 14:05:02 Tez [id number] [facility] 2021-11-27 Outpatient Wagner, [facility] [id number] Common 13:58:07 Tez [id number] [facility] 2021-11-27 Outpatient Wagner, [facility] [id number] Common 13:40:25 Tez 72019 [facility] 2021-11-27 Outpatient Wagner, [facility] [id number] Common 13:28:10 Tez [id number] [facility] 2021-11-27 Outpatient Wagner, STLMLC STLMLC [id number] Common 13:06:52 Tez [id number] [facility] 2021-11-27 Outpatient Wagner, STLMLC STLMLC [id number] Common 12:35:21 Tez 89750 [facility] 2021-11-27 Outpatient Wagner, STLMLC STLMLC [id number] Common 12:27:22 Tez [id number] [facility] 2021-11-27 Outpatient Wagner, STLMLC STLMLC [id number] Common 12:21:38 Tez 53585 [facility] 2021-11-27 Outpatient Wagner, STLMLC STLMLC [id number] Common 12:19:44 Tez 06258 [facility] 2021-11-27 Outpatient STLMLC STLMLC [id number] Common 12:17:54 [id number] [facility] 2021-11-27 Outpatient Francesco Pyle STLMLC STLMLC [id number] Common 12:15:14 72539 [facility] 2021-11-27 Outpatient Francesco Pyle STLMLC STLMLC [id number] Common 12:06:19 [id number] [facility] 2021-11-27 Outpatient Millender, STLMLC STLMLC [id number] Common 12:05:57 Dee Dee 54615 [facility] 2021-11-27 Outpatient Millender, STLMLC STLMLC [id number] Common 11:11:52 Dee Dee 27593 [facility] 2021-11-27 Outpatient Millender, STLMLC STLMLC [id number] Common 11:11:15 Dee Dee 41622 [facility] 2020-09-11 Inpatient ER MEGAN, [facility] Internal [id number] [facility] 20:40:00 [facility] 2022-09-04 2022-09-04 OFFICE STLMLC STLMLC [id number] Co mmon 00:00:00 00:00:00 VISIT Spirit ESTAB PT - CHI LEVEL 4 [facility] 2022-05-06 2022-05-06 OFFICE STLMLC STLMLC [id number] Co mmon 00:00:00 00:00:00 VISIT EST Spir it PT LEVEL 3 - CHI [facility] 2021-12-26 2021-12-26 OFFICE STLMLC STLMLC [id number] Co mmon 00:00:00 00:00:00 VISIT EST Spir it PT LEVEL 3 - CHI [facility] 2021-12-26 2021-12-26 SUB ANNUAL STLMLC STLMLC [id number] Common 00:00:00 00:00:00 MCR Spirit WELLNESS - CHI VISIT [facility] 2021-09-04 2021-09-04 OFFICE STLMLC STLMLC [id number] Co mmon 00:00:00 00:00:00 VISIT Spirit ESTAB PT - CHI LEVEL 4 [facility] 2021-08-08 2021-08-08 OFFICE STLMLC STLMLC [id number] Co mmon 00:00:00 00:00:00 VISIT EST Spir it PT LEVEL 3 - CHI [facility] 2021-05-08 2021-05-08 OFFICE STLMLC STLMLC [id number] Co mmon 00:00:00 00:00:00 VISIT Spirit ESTAB PT - CHI LEVEL 4 [facility] 2021-04-16 2021-04-16 Outpatient STLMLC STLMLC [id number] Common 00:00:00 00:00:00 Spirit - CHI [facility] 2021-01-10 2021-01-10 Laboratory Lab, Adc Fam Pob I [facility] .. [id number] [facility] 10:49:29 11:09:29 Only [facility] [id number] ity of [place] [id number] Bull as Profelizaio [phone] [address] Office [facility] One 2021-01-10 2021-01-10 Laboratory Lab, [facility] [id number] 10:49:29 11:09:29 Only Fam Pob I Health [id number] [place] [id number] Rachell [phone] nal [address] 2021-01-10 2021-01-10 Outpatient R KRISTEN, [facility] [id number] Univers 11:00:00 11:00:00 CALISTA yvette [facility] 2021-01-10 2021-01-10 Outpatient R [facility] [id number] Univers 10:45:00 10:45:00 [id number] [facility] 2021-01-09 2021-01-09 Outpatient STLMLC STLMLC [id number] Common 00:00:00 00:00:00 [facility] 2021-01-03 2021-01-03 Outpatient STLMLC STLMLC [id number] Common 00:00:00 00:00:00 [facility] 2021-01-03 2021-01-03 Outpatient STLMLC STLMLC [id number] Common 00:00:00 00:00:00 [facility] 2020-12-07 2020-12-07 Outpatient STLMLC STLMLC [id number] Common 00:00:00 00:00:00 [facility] 2020-12-05 2020-12-05 Outpatient STLMLC STLMLC [id number] Common 00:00:00 00:00:00 [facility] 2020-10-19 2020-10-19 Outpatient STLMLC STLMLC [id number] Common 00:00:00 00:00:00 [facility] 2020-04-05 2020-04-05 Out[facility] [id number] Common 11:00:00 11:00:00 [facility] [address] Road [facility] 2020-01-04 2020-01-04 Outpatient [facility] [id number] Common 10:00:00 10:00:00 [facility] it Road [facility] 2019-10-04 2019-10-04 Outpatient [facility] [id number] Common 10:59:00 10:59:00 [facility] it [facility] 2019-10-04 2019-10-04 Outpatient [facility] [id number] Common 10:00:00 10:00:[address] [facility] 2019-07-05 2019-07-05 Outpatient [facility] [id number] Common 09:40:00 09:40:[address] [facility] 2019-06-14 2019-06-14 Outpatient [facility] [id number] Common 13:33:00 13:33:[address] [facility] 2019-05-06 2019-05-06 Outpatient [facility] [id number] Common 09:21:00 09:21:[address] [facility] 2019-04-27 2019-04-27 Outpatient [facility] [id number] Common 10:00:00 10:00:[address] [facility] 2019-01-10 2019-01-10 Outpatient [facility] [id number] Common 16:47:00 16:47:[address] [facility] 2019-01-04 2019-01-04 Outpatient [facility] [id number] Common 16:12:00 16:12:[address] [facility] 2019-01-03 2019-01-03 Outpatient [facility] [id number] Common 11:30:00 11:30:[address] [facility] 2018-08-09 2018-08-09 Outpatient [facility] [id number] Common 22:25:00 22:25:[address] [facility] 2018-08-03 2018-08-03 Outpatient [facility] [id number] Common 10:30:00 10:30:[address] [facility] Results Test Description Test Time Test Comments Results Result Comments Source BASIC METABOLIC PANEL 2020-09-13 06:09:00 Test Item Value Reference Range Interpretation Comme nts SODIUM (BEAKER) (test code = 135 meq/L 135-148 381) POTASSIUM (BEAKER) (test code 3.6 meq/L 3.6-5.5 = 379) CHLORIDE (BEAKER) (test code = 106 meq/L 98-106 382) CO2 (BEAKER) (test code = 355) 21 meq/L 20-29 BLOOD UREA NITROGEN (BEAKER) 9 mg/dL 10-26 L (test code = 354) CREATININE (BEAKER) (test code 0.75 mg/dL 0.50-1.20 = 358) GLUCOSE RANDOM (BEAKER) (test 83 mg/dL 70-110 code = 652) CALCIUM (BEAKER) (test code = 8.7 mg/dL 8.5-10.5 697) EGFR (BEAKER) (test code = I NSUFFICIENT CLINICAL DATA TO 1092) CALCULATE ESTIM ATED GFR. Night Warehouse Manager ID - ADMINOperator ID - ADMINOperator ID - ADMINOperator ID - ADMINOperator ID - ADMINOperator ID - ADMINOperator ID - ADMINOperator ID - ADMINOperator ID - ADMINOperator ID - [id number] 06:07:00 Test Item Value Reference Range Interpretation Comments MAGNESIUM (BEAKER) (test code = 1.8 mg/dL 1.5-3.0 627) Night Warehouse Manager ID - ADMINOperator ID - ADMINOperator ID - ADMINOperator ID - ADMIN [id number] 06:04:00 Test Item Value Reference Range Interpretation Comments PHOSPHORUS (BEAKER) (test code = 3.2 mg/dL 2.5-4.5 604) Night Warehouse Manager ID - ADMINCBC W/PLT COUNT & AUTO [id number] 05:46:00 Test Item Value Reference Range Interpretation [...] 0-0 PERCENT (BEAKER) (test code = 2801) SARS-COV2/RT-PCR ([facility])2020-09-12 16:01:00 Test Item Value Reference Range Interpretation Comments SARS-COV2/RT-PCR (test Negative Not Detected, Negative, code = 1032357) See external report for linked test SARS-COV-2 PERFORMING LAB [facility] DH[facility] (test code = 6570722) Negative result for this test determines that [...] individuals suspected of COVID-19 by their healthcare provider.This test [...] justifying the authorization of the emergency use ofin vitro diagnostic tests for detection and/or diagnosis of COVID-19 is terminated under Section 564(b)(2) of the Act or the EUA is revoked under Section 564(g) of the Act.Fact Sheet for Healthcare Prov iders:https://www.PillPack.Affinaquest/sites/default/files/product/documents/Fact_Sheet_HC _Mioigxokf_Cekt_IQFD-TfF-2.pdfFact Sheet for Healthcare Patients:https://www.PillPack.Affinaquest/sites/default/files/product/docume nts/Igmt_Jdbip_Iledcrlm_Sskr_GCKT-JxG-3.pdfPerforming Laboratory:[facility].[place], [place] [address]QRETOE BLOOD, STOOL 2020-09-12 14:09:00 Test Item Value Reference Range Interpretation Comments FECAL OCCULT BLOOD (BEAKER) (test Positive Negative A code = 618) IRON, TIBC, % SAT. (WITHOUT FERRITIN)2020-09-12 10:00:00 Test Item Value Reference Range Interpretation Comments IRON (BEAKER) (test code = 547) 33.0 ug/dL 45.0-170.0 L TOTAL IRON BINDING CAPACITY 433 ug/dL 250-550 (BEAKER) (test code = 769) IRON % SATURATION (2) (BEAKER) 8 % 20-55 L (test code = 2590) Night Warehouse Manager ID - ADMINOperator ID - ADMINHEMOGLOBIN [id number] 07:32:00 Test Item Value Reference Range Interpretation Comments HEMOGLOBIN A1C (BEAKER) (test code = 5.8 % 4.3-6.1 368) Night Warehouse Manager ID - ADMINTROPONIN [id number] 05:28:00 Test Item Value Reference Range Interpretation [...] failure, acidosis, acute neurological disease, and persistent tachyarrhythmia.Night Warehouse Manager ID - ADMINB-TYPE NATRIURETIC FACTOR (BNP)2020-09-12 05:22:00 Test Item Value Reference Range Interpretation Comments B-TYPE NATRIURETIC PEPTIDE (BEAKER) 555 pg/mL 0-100 H (test code = 700) Night Warehouse Manager ID - ADMINCOMPREHENSIVE METABOLIC [id number] 05:22:00 Test Item Value Reference Range Interpretation [...] 1092) DATA TO CALCULA TE ESTIMATED GFR. Night Warehouse Manager ID - ADMINOperator ID - ADMINOperator ID - ADMINOperator ID - ADMINOperator ID - ADMINOperator ID - ADMINOperator ID - ADMINOperator ID - ADMINOperator ID - ADMINOperator ID - ADMINOperator ID- ADMINOperator ID - ADMINOperator ID - ADMINOperator ID - ADMINOperator ID - ADMINOperator ID - ADMI NPROTHROMBIN TIME/[id number] 05:18:00 Test Item Value Reference Range Interpretation [...] is 2.5-3.5 for patients with mechanical heart valves.[id number] 05:17:00 Test Item Value Reference Range Interpretation Comments MAGNESIUM (BEAKER) (test code = 1.6 mg/dL 1.5-3.0 627) Night Warehouse Manager ID - ADMINOperator ID - ADMINOperator ID - ADMINOperator ID - ADMIN [id number] 05:14:00 Test Item Value Reference Range Interpretation Comments PHOSPHORUS (BEAKER) (test code = 3.3 mg/dL 2.5-4.5 604) Night Warehouse Manager ID - ADMINCBC W/PLT COUNT & AUTO [id number] 05:10:00 Test Item Value Reference Range Interpretation [...] PERCENT (BEAKER) (test code = 2801) TROPONIN [id number] 00:20:00 Test Item Value Reference Range Interpretation [...] failure, acidosis, acute neurological disease, and persistent tachyarrhythmia.Night Warehouse Manager ID - ADMIN
[2022-10-25 13:18] LABS: Urine Blood Negative (Negative); Urine Glucose Negative (Negative); Urine Protein Negative (Negative)
[2022-10-25] MEDS ORDERED: ONDANSETRON 4 MG/2 ML VIAL ONE (13:19)
[2022-10-25] MEDS ORDERED: MORPHINE 4 MG/ML SYR ONE (13:19)
[2022-10-25] MEDS ORDERED: MORPHINE 2 MG/ML SYR ONE (13:21)
[2022-10-25 13:38] LABS: Absolute Lymphocytes (CBC) 2.9 K/uL (0.7-4.9); Hematocrit 38.5 % (36.0-45.0); Lymphocytes % 41.6 % (15.3-44.8); MCV 89.5 fL (80-100); MPV 7.7 fL (7.6-11.3)
[2022-10-25 13:43] LABS: Urine Bacteria <20 /HPF (<20); Urine Crystals Unidentified Few /HPF (None Seen); Urine RBC <5 /HPF (None Seen)
[2022-10-25 14:00] LABS: Albumin 3.6 g/dL (3.4-5.0); Bilirubin Total 0.4 mg/dL (0.2-1.0); Potassium 3.3 mmol/L (3.5-5.1); Protein, Total 7.2 g/dL (6.4-8.2); Troponin High Sensitivity 16.8 pg/mL (<58.9)
--- NOTE | 2022-10-25 14:35 | RAD REPORT ---
EXAM DESCRIPTION: CTAbdomen Pelvis W Contrast - 10/25/2022 2:28 pm CLINICAL HISTORY: Abdominal pain. RLQ abdominal pain COMPARISON: CT ABD PELVIS W CONTRAST dated 07/05/2015; Chest Pa And Lat (2 Views) dated 11/20/2019 TECHNIQUE: Biphasic CT imaging of the abdomen and pelvis was performed with 100 ml non-ionic IV cont rast. All CT scans are performed using dose optimization technique as appropriate and may include automated exposure control or mA/KV adjustment according to patient size. FINDINGS: Mild linear opacities in both lung bases.Mild cardiomegaly. The liver, spleen, pancreas, adrenal glands and kidneys are within normal limits. 4.5 cm left renal c yst, parapelvic region. No bowel obstruction, free air, free fluid or abscess. Colonic diverticulosis is present without dive rticulitis. The appendix is not identified as a discrete structure, however, no secondary findings of appendicitis are identified. No evidence of significant lymphadenopathy. Small left adnexal cyst i s noted. Moderate lumbar degenerative changes. IMPRESSION: Significant colonic diverticulosis coli without diverticulitis.
--- NOTE | 2022-10-25 15:20 | EDPHYS ---
Physician Documentation [facility] Name: Harpreet Salazar Age: 87 yrs Sex: Female : 1935 Arrival Date: 10/25/2022 Time: 12:16 Bed 15 Private MD: Meme Wagnerh ED Physician Alma Tellez HPI: 10/25 13:01 This 87 yrs old Female presents to ER via Ambulatory with complaints of sd2 Abdominal Pain, Pelvic Pain, Leg Pain. 13:01 87 yo F presents with CC of RLQ abdominal pain x3 weeks. Worse at night. Denies fever, sd2 vomiting, diarrhea. Endorses nausea. Denies urinary symptoms. Reports the pain sometimes radiates across her lower abdomen or down her right leg. Has not taken any medication for it at home. . Historical: - Allergies: 12:40 Bactrim; ph - Home Meds: 15:42 indapamide 2.5 mg Oral tab [Active]; lisinopril 20 mg oral tab 1 tab once daily eh3 [Active]; - PMHx: 12:40 Hypertension; ph - PSHx: 12:40 hysterectomy; ph - Immunization history:: Adult Immunizations unknown. - Social history:: Smoking status: Patient denies any tobacco usage or history of. ROS: 13:01 Constitutional: Negative for fever, chills, and weight loss, Eyes: Negative for injury, sd2 pain, redness, and discharge, Cardiovascular: Negative for chest pain, palpitations, and edema, Respiratory: Negative for shortness of breath, cough, wheezing. 13:01 : Negative for dysuria, urinary frequency, hesitancy, urgency and hematuria. MS/Extremity: Negative for injury and deformity, Skin: Negative for injury, rash, and discoloration, Neuro: Negative for headache, numbness and tingling. 13:01 Abdomen/GI: Positive for abdominal pain, nausea, Negative for vomiting, diarrhea. Exam: 13:01 Constitutional: This is a well developed, well nourished patient who is awake, alert, sd2 and in no acute distress. Head/Face: Normocephalic, atraumatic. Eyes: EOMI, normal conjunctiva bilaterally Chest/axilla: Normal chest wall appearance and motion. Nontender with no deformity. Cardiovascular: Regular rate and rhythm with a normal S1 and S2. No gallops, murmurs, or rubs. 2+ distal pulses. Respiratory: Lungs have equal breath sounds bilaterally, clear to auscultation and percussion. No rales, rhonchi or wheezes noted. No increased work of breathing, no retractions or nasal flaring. Abdomen/GI: Sof, with normal bowel sounds. No guarding or rebound. RLQ tenderness to palpation. Skin: Warm, dry with normal turgor. Normal color with no rashes, no lesions, and no evidence of cellulitis. MS/ Extremity: Pulses equal, no cyanosis. Neurovascular intact. Full, normal range of motion. Ambulatory without difficulty. Psych: Awake, alert, with orientation to person, place and time. Behavior, mood, and affect are within normal limits. 13:24 ECG was reviewed by the Attending Physician. NSR, rate 74, no STEMI criteria sd2 Vital Signs: 12:43 Resp 16; Temp 97.9; Weight 63.5 kg; Height 5 ft. 0 in. (152.40 cm); ph 12:45 BP 162 / 74; Pulse 72; Pulse Ox 99% on R/A; eh3 13:45 BP 137 / 72; Pulse 71; Resp 12; Pulse Ox 96% on R/A; eh3 14:45 BP 130 / 65; Pulse 69; Resp 12; Pulse Ox 97% on R/A; eh3 12:43 Body Mass Index 27.34 (63.50 kg, 152.40 cm) ph MDM: 12:42 Patient medically screened. sd2 13:01 Differential diagnosis: Gastritis, cholecystitis, pancreatitis, SBO, diverticulitis, sd2 kidney stone, appendicitis, UTI, dehydration, electrolyte abnormality among others. Data reviewed: vital signs, nurses notes. 15:18 Data reviewed: lab test result(s), radiologic studies. Counseling: I had a detailed sd2 discussion with the patient and/or guardian regarding: the historical points, exam findings, and any diagnostic results supporting the discharge/admit diagnosis, lab results, radiology results, the need for outpatient follow up, to return to the emergency department if symptoms worsen or persist or if there are any questions or concerns that arise at home. ED course: Labs and imaging reviewed. Labs grossly WNCL. CTAP with no acute abnormality. Pt and family at report patient has been "overdoing it" and may be muscular. Advised Tylenol and Naproxen as needed for pain and to follow up with PCP. Verbalizes understanding of strict return precautions. . 10/25 13:00 Order name: CBC with Diff; Complete Time: 14:05 10/25 13:00 Order name: CMP; Complete Time: 14:05 sd2 10/25 13:00 Order name: Lipase; Complete Time: 14:05 10/25 13:00 Order name: Troponin High Sensitivity; Complete Time: 14:05 sd2 10/25 13:00 Order name: Urine Microscopic Only; Complete Time: 14:05 10/25 13:18 Order name: Urine Dipstick-Ancillary; Complete Time: 14:05 EDMS 10/25 13:00 Order name: EKG - Nurse/Tech; Complete Time: 13:18 10/25 13:00 Order name: Urine Dipstick-Ancillary (obtain specimen); Complete Time: 13:18 2 10/25 13:00 Order name: CT Abd/Pelvis - IV Contrast Only 10/25 13:04 Order name: Abdomen ; Complete Time: 14:44 EDMS Administered Medications: 13:26 Drug: morphine 2 mg Route: IVP; Infused Over: 4 mins; Site: right antecubital; eh3 14:15 Follow up: Response: Pain is decreased eh3 13:26 Drug: Zofran (Ondansetron) 4 mg Route: IVP; Site: right antecubital; eh3 14:15 Follow up: Response: Nausea is decreased eh3 Disposition Summary: 10/25/22 15:20 Discharge Ordered Location: Home sd2 Problem: new sd2 Symptoms: have improved sd2 Condition: Stable sd2 Diagnosis - Right lower quadrant pain sd2 Followup: sd2 - With: Tez Wagner, DO - When: 2 - 3 days - Reason: Recheck today's complaints, Continuance of care, Re-evaluation by your physician Discharge Instructions: - Discharge Summary Sheet sd2 - Abdominal Pain, Adult sd2 - Pain Without a Known Cause sd2 Forms: - Medication Reconciliation Form sd2 - Thank You Letter sd2 - Antibiotic Education sd2 - Prescription Opioid Use sd2 Prescriptions: - Naprosyn 500 mg Oral Tablet - take 1 tablet by ORAL route 2 times per day As needed take with food; 20 sd2 tablet; Refills: 0, Product Selection Permitted Signatures: Dispatcher [employer] Lucina Carr RN RN [facility], LONNIE Martines RN 3 Alma Tellez MD MD sd2
--- NOTE | 2022-10-25 15:20 | ER ---
Nurse's Notes [facility] Name: Harpreet Salazar Age: 87 yrs Sex: Female : 1935 Arrival Date: 10/25/2022 Time: 12:16 Bed 15 Private MD: Tez Wagner Diagnosis: Right lower quadrant pain Presentation: 10/25 12:39 Chief complaint: Patient states: RLQ pain that radiates to LLQ and down R leg x approx ph 2 weeks, also reports nausea and constipation. Coronavirus screen: Vaccine status: Patient reports receiving the 2nd dose of the covid vaccine. Ebola Screen: No symptoms or risks identified at this time. Initial Sepsis Screen: Does the patient meet any 2 criteria? No. Patient's initial sepsis screen is negative. Does the patient have a suspected source of infection? No. Patient's initial sepsis screen is negative. Risk Assessment: Do you want to hurt yourself or someone else? Patient reports no desire to harm self or others. Onset of symptoms was October 25, 2022. 12:39 Method Of Arrival: Ambulatory ph 12:39 Acuity: NÉSTOR 3 ph Historical: - Allergies: 12:40 Bactrim; ph - Home Meds: 15:42 indapamide 2.5 mg Oral tab [Active]; lisinopril 20 mg oral tab 1 tab once daily eh3 [Active]; - PMHx: 12:40 Hypertension; ph - PSHx: 12:40 hysterectomy; ph - Immunization history:: Adult Immunizations unknown. - Social history:: Smoking status: Patient denies any tobacco usage or history of. Screenin:45 [facility] ED Fall Risk Assessment (Adult) History of falling in the last 3 months, eh3 including since admission No falls in past 3 months (0 pts) Confusion or Disorientation No (0 pts) Intoxicated or Sedated No (0 pts) Impaired Gait No (0 pts) Mobility Assist Device Used No (0 pt) Altered Elimination Yes (1 pt) Score/Fall Risk Level 0 - 2 = Low Risk Oriented to surroundings, Maintained a safe environment, Educated pt \T\ family on fall prevention, incl call for assistance when getting out of bed, Assessed \T\ reinforced patient's understanding of fall precautions, Hourly rounding (assess needs \T\ fall precautionary measures) done. Abuse screen: Denies threats or abuse. Denies injuries from another. Nutritional screening: No deficits noted. Tuberculosis screening: No symptoms or risk factors identified. Assessment: 12:45 General: Appears in no apparent distress. uncomfortable, Behavior is calm, cooperative, eh3 appropriate for age. Pain: Complains of pain in suprapubic area, right lower quadrant and left lower quadrant Pain radiates to right leg. Neuro: Level of Consciousness is awake, alert, obeys commands, Oriented to person, place, time, situation. Cardiovascular: Capillary refill < 3 seconds Patient's skin is warm and dry. Respiratory: Airway is patent Respiratory effort is even, unlabored, Respiratory pattern is regular, symmetrical. GI: Abdomen is round non-distended, Bowel sounds present X 4 quads. Abd is soft and non tender X 4 quads. : No signs and/or symptoms were reported regarding the genitourinary system. EENT: No signs and/or symptoms were reported regarding the EENT system. Derm: No signs and/or symptoms reported regarding the dermatologic system. Musculoskeletal: No signs and/or symptoms reported regarding the musculoskeletal system. Circulation, motion, and sensation intact. Range of motion: intact in all extremities. 13:45 Reassessment: Patient appears in no apparent distress at this time. Patient and/or 3 family updated on plan of care and expected duration. Pain level reassessed. Patient is alert, oriented x 3, equal unlabored respirations, skin warm/dry/pink. 14:45 Reassessment: Patient appears in no apparent distress at this time. Patient and/or eh3 family updated on plan of care and expected duration. Pain level reassessed. Patient is alert, oriented x 3, equal unlabored respirations, skin warm/dry/pink. Vital Signs: 12:43 Resp 16; Temp 97.9; Weight 63.5 kg; Height 5 ft. 0 in. (152.40 cm); ph 12:45 BP 162 / 74; Pulse 72; Pulse Ox 99% on R/A; eh3 13:45 BP 137 / 72; Pulse 71; Resp 12; Pulse Ox 96% on R/A; eh3 14:45 BP 130 / 65; Pulse 69; Resp 12; Pulse Ox 97% on R/A; eh3 12:43 Body Mass Index 27.34 (63.50 kg, 152.40 cm) ED Course: 12:16 Patient arrived in ED. as 12:16 Tez Wganer DO is Private Physician. as 12:25 Alma Tellez MD is Attending Physician. sd2 12:40 Triage completed. ph 12:40 Arm band placed on Patient placed in an exam room. ph 12:45 Patient has correct armband on for positive identification. Bed in low position. Call eh3 light in reach. Side rails up X2. Pulse ox on. NIBP on. Door closed. Noise minimized. Lights dimmed. Warm blanket given. 12:55 Bobbi Mckeon, RN is Primary Nurse. eh3 13:05 Inserted saline lock: 20 gauge in right antecubital area, using aseptic technique. eh3 Blood collected. 13:18 Urine Microscopic Only Sent. eh3 14:30 Abdomen In Process Unspecified. EDMS 15:19 Tez Wagner DO is Referral Physician. sd2 15:41 No provider procedures requiring assistance completed. IV discontinued, intact, eh3 bleeding controlled, No redness/swelling at site. Pressure dressing applied. Administered Medications: 13:26 Drug: morphine 2 mg Route: IVP; Infused Over: 4 mins; Site: right antecubital; eh3 14:15 Follow up: Response: Pain is decreased eh3 13:26 Drug: Zofran (Ondansetron) 4 mg Route: IVP; Site: right antecubital; eh3 14:15 Follow up: Response: Nausea is decreased eh3 Medication: 15:42 VIS not applicable for this client. eh3 Outcome: 15:20 Discharge ordered by . sd2 15:42 Discharged to home ambulatory, with family. eh3 15:42 Condition: stable 15:42 Discharge instructions given to patient, family, Instructed on discharge instructions, follow up and referral plans. medication usage, Demonstrated understanding of instructions, follow-up care, medications, Prescriptions given X 1. 15:42 Patient left the ED. eh3 Signatures: Dispatcher [employer] Aletha Hanson as Lucina Mckeon, LONNIE FLEMING Bobbi Mckeon, LONNIE FLEMING eh3 Alma Tellez MD MD sd2
[2022-10-25 15:49] VITALS: TEMP 97.9
[2022-10-25 15:52] VITALS: BP 130/65; O2SAT 97
== END 2022-10-25 15:42 | disposition home or self-care (01) ==
LOC: ER 12:14
DX: R10.31 Right lower quadrant pain (principal); I10 Essential (primary) hypertension; Z88.1 Allergy status to other antibiotic agents
CPT/HCPCS: 85025; 36415; 84484; 83690; 80053; 74177; Q9967; J2270; J2405; 81003; 81015; 93005

== ENCOUNTER 2024-02-09 12:40 | Inpatient (IN) | payer OTHER ==
--- NOTE | 2024-02-09 13:51 | RAD REPORT ---
EXAM DESCRIPTION: RAD - Chest Single View - 02/09/2024 1:45 pm CLINICAL HISTORY: URI Chest pain. COMPARISON: <Comparisons> FINDINGS: Portable technique limits examination quality. The lungs are emphysematous. Icuk-jd-dlknazkg patchy opacity left lung bases history with a small ple ural effusion likely represents infiltrate/ pneumonia. Trace right pleural effusion. The heart is upp er limit normal in size. No displaced fractures. IMPRESSION: Mild to moderate left lung base pneumonia.
[2024-02-09] MEDS ORDERED: CEFTRIAXONE 1000 MG/VIAL ONE (14:48)
[2024-02-09] MEDS ORDERED: ACETAMINOPHEN 500 MG TAB ONE ×2 (14:48→15:07)
[2024-02-09] MEDS ORDERED: AZITHROMYCIN 500 MG INJ IVPB ONE (14:48)
[2024-02-09] MEDS ORDERED: NA CHLORIDE 0.9% 50 ML ONE (14:49)
[2024-02-09] MEDS ORDERED: NA CHLORIDE 0.9% 1,000 ML ONE (14:49)
[2024-02-09] MEDS ORDERED: NA CHLORIDE 0.9% 250 ML ONE (14:50)
[2024-02-09 15:06] LABS: Absolute Eosinophils 0.8 K/uL (0-0.5); Absolute Lymphocytes (CBC) 2.2 K/uL (0.7-4.9); Absolute Monocytes 0.6 K/uL (0.1-1.3); Absolute Neutrophil 9.7 K/uL (1.8-8.0); Basophils % 0.2 % (0-1.3); Eosinophils % 6.2 % (0-4.4); Hematocrit 33.9 % (36.0-45.0); Hemoglobin 11.5 g/dL (12.0-15.0); Lymphocytes % 16.8 % (15.3-44.8); MCH 30.4 pg (27.0-35.0); MCV 89.3 fL (80-100); MPV 7.3 fL (7.6-11.3); Monocytes % 4.4 % (3.3-12.3); Neutrophils % 72.4 % (41.7-73.7); Platelets 487 thou/uL (152-406); Red Cell Distribution Width 12.8 % (12.1-15.2)
[2024-02-09 15:18] LABS: Albumin 3.1 g/dL (3.4-5.0); Albumin/Globulin Ratio 0.7 (1.1-1.8); Anion Gap 9.5 mEq/L (5.0-15.0); Bilirubin Total 0.6 mg/dL (0.2-1.0); Globulin 4.2 g/dL (2.3-3.5); Potassium 3.5 mEq/L (3.5-5.1); Protein, Total 7.3 g/dL (6.4-8.2)
--- NOTE | 2024-02-09 15:28 | ER ---
Nurse's Notes [facility] Name: Harpreet Salazar Age: 88 yrs Sex: Female : 1935 Arrival Date: 02/09/2024 Time: 12:40 Bed 12 Private MD: Diagnosis: Sepsis, unspecified organism;Unspecified bacterial pneumonia;Hypo-osmolality and hyponatremia Presentation: 02/08 13:04 Chief complaint: Patient states: cough, body aches, fever, diarrhea, SOB x1 week. as6 Coronavirus screen: At this time, the client does not indicate any symptoms associated with coronavirus-19. Ebola Screen: No symptoms or risks identified at this time. Initial Sepsis Screen: Does the patient meet any 2 criteria? No. Patient's initial sepsis screen is negative. Does the patient have a suspected source of infection? No. Patient's initial sepsis screen is negative. Risk Assessment: Do you want to hurt yourself or someone else? Patient reports no desire to harm self or others. Onset of symptoms was February 02, 2024. 13:04 Acuity: NÉSTOR 4 as6 13:04 Method Of Arrival: Ambulatory as6 15:10 Acuity: NÉSTOR 3 ss Historical: - Allergies: 13:03 Bactrim; as6 - Home Meds: 15:47 indapamide 2.5 mg Oral tab 1 tab daily [Active]; lisinopril 20 mg Oral tab 1 tab once nj1 daily [Active]; - PMHx: 13:03 Hypertension; as6 - PSHx: 13:03 hysterectomy; as6 - Immunization history:: Adult Immunizations up to date. - Infectious Disease History:: Denies. - Social history:: Smoking status: Patient denies any tobacco usage or history of. Screenin:10 [facility] ED Fall Risk Assessment (Adult) History of falling in the last 3 months, ss including since admission No falls in past 3 months (0 pts). Abuse screen: Denies threats or abuse. Denies injuries from another. Nutritional screening: No deficits noted. Tuberculosis screening: Never had TB. Assessment: 15:10 General: Appears in no apparent distress. Behavior is calm, cooperative. General: ss Reports fever for > 3 days, feeling ill for > 3 days. Pain: Complains of pain in generalized body aches Pain currently is 5 out of 10 on a pain scale. Quality of pain is described as aching. Neuro: Level of Consciousness is awake, alert, obeys commands, Oriented to person, place, time, situation. Respiratory: Airway is patent Respiratory effort is even, unlabored, Respiratory pattern is regular, symmetrical. Respiratory: Reports cough that is hacking. GI: No signs and/or symptoms were reported involving the gastrointestinal system. Derm: Skin is pink, warm \T\ dry. normal. 15:40 Reassessment: Patient appears in no apparent distress at this time. Patient and/or nj1 family updated on plan of care and expected duration. Pain level reassessed. Patient is alert, oriented x 3, equal unlabored respirations, skin warm/dry/pink. 15:47 Reassessment: Call daughter with updates, Taryn [phone]. nj1 16:40 Reassessment: Patient appears in no apparent distress at this time. Patient and/or nj1 family updated on plan of care and expected duration. Pain level reassessed. Patient is alert, oriented x 3, equal unlabored respirations, skin warm/dry/pink. Vital Signs: 13:04 BP 157 / 99; Pulse 111; Resp 18 S; Temp 99.4(TE); Pulse Ox 98% on R/A; Weight 63.5 kg as6 (R); Height 5 ft. 1 in. (R); 15:59 BP 139 / 58; Pulse 81; Resp 17; Pulse Ox 99% on R/A; nj1 13:04 Body Mass Index 26.45 (63.50 kg, 154.94 cm) as6 ED Course: 12:40 Inserted saline lock: 20 gauge in right antecubital area, using aseptic technique. ss Blood collected. 12:46 Patient arrived in ED. mg5 12:47 Juan Diego Campos MD is Attending Physician. ec2 13:02 Arm band placed on left wrist. as6 13:05 Triage completed. as6 13:46 CXR XRAY In Process Unspecified. EDMS 14:29 EKG done, by ED staff, reviewed by Juan Diego Campos MD. em1 14:44 Britta Miguel, LONNIE is Primary Nurse. ss 15:10 Patient has correct armband on for positive identification. ss 15:27 Contreras Moreno MD is Hospitalizing Provider. ec2 15:40 Snacks given. nj1 15:40 Provided Education on: call light, fall precautions. nj1 15:58 Primary Nurse role handed off by Britta Miguel RN jl7 16:10 SARS RAPID Sent. ll1 16:10 COVID swab sent to lab. 1 17:04 No provider procedures requiring assistance completed. Patient admitted, IV remains in az1 place. Administered Medications: 15:12 Drug: Acetaminophen PO 1000 mg PO once Route: PO; ss 17:05 Follow up: Response: No adverse reaction az1 15:12 Drug: NS 0.9% IV 1000 ml IV at 1 bolus Per protocol; 1000 mL bolus Route: IV; Rate: 1 ss bolus; Site: right antecubital; 17:06 Follow up: IV Status: Completed infusion; IV Intake: 1000ml az1 15:12 Drug: Rocephin IV 1 grams IV at calculated rate once; Given slow IV push per pharmacy ss instructions Route: IV; Rate: calculated rate; Site: right antecubital; 15:40 Follow up: Response: No adverse reaction; IV Status: Completed infusion; IV Intake: nj1 100ml 15:40 Drug: AZITHromycin IVPB 500 mg IVPB once over 1 hrs; (mix in 250 mL NS) Route: IVPB; nj1 Infused Over: 1 hrs; Site: right antecubital; 16:40 Follow up: Response: No adverse reaction; IV Status: Completed infusion; IV Intake: nj1 250ml Medication: 15:10 VIS not applicable for this client. ss Intake: 15:40 IV: 100ml; Total: 100ml. nj1 16:40 IV: 250ml; Total: 350ml. nj1 17:06 IV: 1000ml; Total: 1350ml. nj1 Outcome: 15:28 Decision to Hospitalize by Provider. ec2 17:04 Admitted to Tele accompanied by tech, via wheelchair, room 420, nj1 17:04 Condition: stable 17:04 Instructed on the need for admit, 17:07 Patient left the ED. [facility] Signatures: Dispatcher [employer] EDMS Dionisio Perdomo em1 Britta Miguel RN RN ss Leal, Jahala, RN RN jl7 Ana Cox RN RN [facility] [place] RN RN 6 Ana Martinez RN RN nj1 Miriam Vines mg5 Juan Diego Campos MD MD ec2
--- NOTE | 2024-02-09 15:28 | EDPHYS ---
Physician Documentation [facility] Name: Harpreet Salazar Age: 88 yrs Sex: Female : 1935 Arrival Date: 02/09/2024 Time: 12:40 Bed 12 Private MD: ED Physician Juan Diego Campos HPI: 02/08 13:08 This 88 yrs old Female presents to ER via Ambulatory with complaints of Flu ec2 Symptoms. 13:08 Patient arrives today for URI signs symptoms. Patient reports significant cough and ec2 cold symptoms along with congestion, fevers, no vomiting or diarrhea. Reports some shortness of breath associated with this as well . Historical: - Allergies: 13:03 Bactrim; as6 - Home Meds: 15:47 indapamide 2.5 mg Oral tab 1 tab daily [Active]; lisinopril 20 mg Oral tab 1 tab once nj1 daily [Active]; - PMHx: 13:03 Hypertension; as6 - PSHx: 13:03 hysterectomy; as6 - Immunization history:: Adult Immunizations up to date. - Infectious Disease History:: Denies. - Social history:: Smoking status: Patient denies any tobacco usage or history of. ROS: 13:08 Constitutional: as per hpi ec2 Exam: 13:08 Constitutional: GEN: NAD Head: atraumatic Eyes: EOMI Ears: External ears are ec2 normal. CV: Tachycardia LUNGS: no respiratory distress, no wheezes, rales, or rhonchi ABD: non-distended SKIN: no evidence of rashes MSK: no evidence of trauma NEURO: moves all extremities equally Vital Signs: 13:04 BP 157 / 99; Pulse 111; Resp 18 S; Temp 99.4(TE); Pulse Ox 98% on R/A; Weight 63.5 kg as6 (R); Height 5 ft. 1 in. (R); 15:59 BP 139 / 58; Pulse 81; Resp 17; Pulse Ox 99% on R/A; nj1 13:04 Body Mass Index 26.45 (63.50 kg, 154.94 cm) as6 MDM: 13:07 Patient medically screened. ec2 13:08 Data reviewed: vital signs. ED course: Patient arrives today for URI signs symptoms. ec2 Examination markable for well-appearing nontoxic obese slightly tachycardic. Will obtain lab work, chest x-ray. Considering viral infection, possible pneumonia.. 14:29 ED course: EKG independently reviewed and interpreted by me, shows normal sinus rhythm, ec2 rate of 79, no acute ST segment elevations, nonconcerning intervals.. 15:27 ED course: CBC with slight leukocytosis at 13.3. Metabolic profile shows slight ec2 hyponatremia at 125. Lactate within normal ranges. Will admit to for sepsis secondary to pneumonia . 02/08 13:10 Order name: CBC with Diff; Complete Time: 15:26 ec2 02/08 13:10 Order name: CMP; Complete Time: 15:26 ec2 02/08 13:10 Order name: Influenza Screen (a \T\ B); Complete Time: 15:28 ec2 02/08 14:17 Order name: Blood Culture Adult (2) ec2 02/08 14:17 Order name: Lactate w/ 2H reflex if indic.; Complete Time: 15:26 ec2 02/08 14:49 Order name: Glucose, Ancillary Testing; Complete Time: 15:03 EDMS 02/08 15:38 Order name: SARS RAPID; Complete Time: 16:47 as6 02/08 13:10 Order name: CXR XRAY; Complete Time: 14:16 ec2 02/08 13:10 Order name: EKG; Complete Time: 13:10 ec2 02/08 13:10 Order name: EKG - Nurse/Tech; Complete Time: 14:29 ec2 02/08 14:17 Order name: Accucheck; Complete Time: 14:44 ec2 02/08 14:17 Order name: Cardiac monitoring; Complete Time: 15:02 ec2 02/08 14:17 Order name: IV Saline Lock - Large Bore; Complete Time: 14:44 ec2 02/08 14:17 Order name: Labs collected and sent; Complete Time: 15:00 ec2 02/08 14:17 Order name: O2 Per Protocol; Complete Time: 14:44 ec2 02/08 14:17 Order name: O2 Sat Monitoring; Complete Time: 14:44 ec2 02/08 14:17 Order name: Vital Signs; Complete Time: 14:44 ec2 Administered Medications: 15:12 Drug: Acetaminophen PO 1000 mg PO once Route: PO; ss 17:05 Follow up: Response: No adverse reaction nj1 15:12 Drug: NS 0.9% IV 1000 ml IV at 1 bolus Per protocol; 1000 mL bolus Route: IV; Rate: 1 ss bolus; Site: right antecubital; 17:06 Follow up: IV Status: Completed infusion; IV Intake: 1000ml nj1 15:12 Drug: Rocephin IV 1 grams IV at calculated rate once; Given slow IV push per pharmacy ss instructions Route: IV; Rate: calculated rate; Site: right antecubital; 15:40 Follow up: Response: No adverse reaction; IV Status: Completed infusion; IV Intake: nj1 100ml 15:40 Drug: AZITHromycin IVPB 500 mg IVPB once over 1 hrs; (mix in 250 mL NS) Route: IVPB; nj1 Infused Over: 1 hrs; Site: right antecubital; 16:40 Follow up: Response: No adverse reaction; IV Status: Completed infusion; IV Intake: nj1 250ml Disposition Summary: 02/09/24 15:28 Hospitalization Ordered Notes: Hospitalization Status: Inpatient Admission ec2 Provider: Contreras Moreno ec2 Location: Telemetry/[facility] (Inpatient) ec2 Condition: Stable ec2 Problem: new ec2 Symptoms: have improved ec2 Bed/Room Type: Standard ec2 Room Assignment: 420(02/09/24 15:56) bd Diagnosis - Sepsis, unspecified organism ec2 - Unspecified bacterial pneumonia ec2 - Hypo-osmolality and hyponatremia ec2 Forms: - Medication Reconciliation Form ec2 - SBAR form ec2 - Leadership Thank You Letter ec2 Critical care time excluding procedures: 15:29 Critical care time: Bedside Care: 30 minutes, Consultation: 5 minutes. Total time: 35 ec2 minutes Signatures: Dispatcher [employer] EDWinnie Foster bd Britta Miguel RN RN ss Naga Ward RN RN as6 Ana Martinez RN RN nj1 Juan Diego Campos MD MD ec2 Corrections: (The following items were deleted from the chart) 15:56 15:28 ec2 bd
[2024-02-09 16:37] LABS: SARS-CoV-2 Antigen CONTROL BLUE LINE VIS/BG OK; SARS-CoV-2 Antigen Rapid Res Negative (Negative)
--- NOTE | 2024-02-09 16:53 | P.HP ---
Certification for Inpatient Patient admitted to: Inpatient With expected LOS: >2 Midnights Patient will require the following post-hospital care: None Practitioner: I am a practitioner with admitting privileges, knowledge of patient current condition, hospital course, and medical plan of care. Services: Services provided to patient in accordance with Admission requirements found in Title 42 Section 412.3 of the Code of Federal Regulations Patient History Date of Service: 02/09/24 Reason for admission: Sepsis, pneumonia History of Present Illness: 88year-old female presents the emergency department with a chief complaint of fever, cough, shortness of breath and diarrhea. She reports the shortness of breath and cough has been going on for about a week and for last 3 days she has been having some mild diarrhea and fevers at home. She was evaluated in the emergency department her labs were significant for leukocytosis with white blood cell count 13.3 hemoglobin 11.5 hematocrit 33.9 sodium was 125 chloride was 91 lactic acid 1.5 COVID and influenza swabs are negative and chest x-ray showed left lower lobe pneumonia. Patient need to be admitted for pneumonia, sepsis Allergies No Known Drug Allergies Allergy (Unverified 02/01/15 22:04) Unknown No Known Allergies Allergy (Uncoded 12/24/16 12:09) Unknown Home Medications: Indapamide [Lozol] 2.5 mg PO DAILY 03/13/14 lisinopriL [Prinivil*] 20 mg PO DAILY 03/13/14 Albuterol Sulfate [Proair Hfa] 8.5 gm IH Q6HP PRN #1 hfa.aer.ad 03/14/14 Azithromycin [Zithromax] 500 mg PO DAILY #3 tablet 03/14/14 Promethazine HCl/Codeine [Promethazine-Codeine Syrup] 180 ml PO Q6HP PRN #180 syrup 03/14/14 - Past Medical/Surgical History Diabetic: No -: HTN -: Pneumonia -: Blurred Vision L eye -: Hysterectomy -: Lasik SX Psychosocial/ Personal History: Lives at home with family - Family History Family History: Reviewed- Non-Contributory - Social History Alcohol use: No CD- Drugs: No Caffeine use: No Place of Residence: Home Review of Systems 10-point ROS is otherwise unremarkable General: Fever Respiratory: Cough, Shortness of Breath Physical Examination - Physical Exam General: Alert, In no apparent distress, Oriented x3 HEENT: Atraumatic, PERRLA, Mucous membr. moist/pink Neck: Supple, 2+ carotid pulse no bruit, No LAD Respiratory: Clear to auscultation bilaterally, Normal air movement Cardiovascular: Regular rate/rhythm, Normal S1 S2 Gastrointestinal: Normal bowel sounds, No tenderness Musculoskeletal: No tenderness Integumentary: No rashes Neurological: Normal speech, Normal strength at 5/5 x4 extr, Normal tone, Normal affect - Studies Laboratory Data (last 24 hrs) 02/09/24 02/09/24 14:36 14:36 WBC 13.30 H Hgb 11.5 L Hct 33.9 L Plt Count 487 H Sodium 125 L Potassium 3.5 BUN 12 Creatinine 0.74 Glucose 102 Total Bilirubin 0.6 AST 17 ALT 20 Alkaline Phosphatase 92 Microbiology Data (last 24 hrs): 02/09/24 14:36 Nasopharnyx Influenza Type A Antigen Screen - Final 02/09/24 14:36 Nasopharnyx Influenza Type B Antigen Screen - Final Assessment and Plan - Plan Assessment: Sepsis secondary to left lower lobe community-acquired pneumonia Hyponatremia Hypertension Plan: Sepsis secondary to left lower lobe community-acquired pneumonia Lactate less than 2, no hypotension or organ dysfunction Blood cultures obtained in the ED Continue antibiotics with Rocephin/Zithromax Hyponatremia Sodium 125, takes indapamide at home Hold indapamide, continue gentle IV fluids overnight Recheck chemistry in the morning Hypertension Continue medications aside from indapamide DVT PPX: Lovenox Code status: Full Discharge Plan: Home Plan to discharge in: 72 Hours - Advance Directives Does patient have a Living Will: No Does patient have a Durable POA for Healthcare: No - Code Status/Comfort Care Code Status Assessed: Yes (Full code) Critical Care: No Time Spent Managing Pts Care (In Minutes): 70
[2024-02-09 18:27] VITALS: BMI 26.4
[2024-02-09] MEDS: NA CHLORIDE 0.9% 1,000 ML IV SCH (21:14)
[2024-02-09] MEDS: BENZONATATE 100 MG CAP PO PRN (21:14)
[2024-02-10] MEDS: CEFTRIAXONE 1,000 MG in NA CHLORIDE 0.9% 50 ML IVPB SCH (07:56)
[2024-02-10] MEDS: ENOXAPARIN 40 MG/0.4 ML SQ SCH (07:57)
[2024-02-10] MEDS: AZITHROMYCIN IV 500 MG in NA CHLORIDE 0.9% 250 ML IVPB SCH (08:03)
[2024-02-10 09:22] LABS: Absolute Eosinophils 0.7 K/uL (0-0.5); Absolute Lymphocytes (CBC) 2.9 K/uL (0.7-4.9); Absolute Monocytes 0.4 K/uL (0.1-1.3); Absolute Neutrophil 4.8 K/uL (1.8-8.0); Basophils % 0.5 % (0-1.3); Eosinophils % 8.4 % (0-4.4); Hematocrit 36.8 % (36.0-45.0); Hemoglobin 12.7 g/dL (12.0-15.0); Lymphocytes % 32.4 % (15.3-44.8); MCH 30.9 pg (27.0-35.0); MCHC 34.4 g/dL (32.0-36.0); MCV 89.8 fL (80-100); MPV 6.9 fL (7.6-11.3); Monocytes % 4.8 % (3.3-12.3); Neutrophils % 53.9 % (41.7-73.7); Nucleated Red Blood Cells % 0.3 % (0-0); Platelets 522 thou/uL (152-406); Red Cell Distribution Width 13.1 % (12.1-15.2)
[2024-02-10 09:35] LABS: Anion Gap 9.5 mEq/L (5.0-15.0); Magnesium 1.5 mg/dL (1.6-2.4); Potassium 3.5 mEq/L (3.5-5.1)
[2024-02-10] MEDS: POTASSIUM 25 MEQ EFFERV TAB PO ONE (11:24)
[2024-02-10] MEDS: Magnesium Sulfate 2gm IVPB 2 G/50 ML BAG IV ONE (11:24)
--- NOTE | 2024-02-10 12:36 | EKG ---
Test Date: 2024-02-09 Test Time: 14:26:48 Chlorine Cell Tender: KENAN MEASUREMENT RESULTS: Intervals: Rate: 79 AL: 162 QRSD: 64 QT: 384 QTc: 440 [place]urdan: P: 19 AL: 162 QRS: -6 T: 40 INTERPRETIVE STATEMENTS: Normal sinus rhythm Low voltage QRS Cannot rule out Anterior infarct, age undetermined Abnormal ECG Compared to ECG 10/25/2022 13:10:27 Left-axis deviation no longer present Myocardial infarct finding still present Electronically Signed On 02-10-24 12:33:28 CDT by Juan José Duran
[2024-02-10] MEDS: lisinopriL 20 MG TAB PO ONE (12:56)
[2024-02-10] MEDS ORDERED: HYDRALAZINE HCL 20 MG/ML VIAL IV PRN (13:25)
--- NOTE | 2024-02-10 13:26 | P.PN ---
Date of Service: 02/10/24 Subjective: Feeling better today Had some diarrhea overnight ROS: 10 point ROS as noted above, otherwise negative Physical exam GEN: Alert, oriented, NAD HEENT: Normal conjunctiva, sclera anicteric CV: Regular rate and rhythm, no edema Pulm: Nonlabored respirations on room air ABD: Soft, nontender, nondistended MSK: No joint tenderness Integumentary: No rashes Neuro: Normal speech, normal affect Vitals reviewed Assessment: Sepsis secondary to left lower lobe community-acquired pneumonia Diarrhea Hyponatremia Hypertension Plan: Sepsis secondary to left lower lobe community-acquired pneumonia Lactate less than 2, no hypotension or organ dysfunction Blood cultures obtained in the ED Continue antibiotics with Rocephin/Zithromax Breathing seems to be improving Ambulatory to restroom/in room patient possible discharge tomorrow Diarrhea Reports a few episodes of diarrhea overnight Start probiotic Hyponatremia Sodium 125 on admission, now 132 Hold indapamide, IV fluids stopped, encourage PO intake Recheck chemistry in the morning Hypertension Continue medications aside from indapamide DVT PPX: Lovenox Code status: Full Discharge Plan: Home Plan to discharge in: 72 Hours Time Spent Managing Pts Care (In Minutes): 35 <Jeffrey Collazo - Last Filed: 02/10/24 13:26> DOS (02/10/24) Patient seen and examined on rounds this morning with CUTTING SUPERVISOR Zay. I performed a substantial part of the MDM during this patient's care today as noted above in the plan of care. I agree with plan of care as noted above with the following additions / corrections: breathing more comfortably had ~3 loose BMs overnight, and 1 this morning appetite improved ambulating without issue +cough, with abd muscle soreness; but improving monitor through day, having quite a bit of diarrhea ensure not getting dehydrated and monitor for possible c.diff - at this time not consistent / does not warrant testing, but if worsens will possible dc home tomorrow <Contreras Moreno - Last Filed: 02/11/24 22:00>
[2024-02-10 22:13] VITALS: O2SAT 97
[2024-02-11 04:09] LABS: Absolute Basophils 0.1 K/uL (0-0.5); Absolute Eosinophils 0.7 K/uL (0-0.5); Absolute Lymphocytes (CBC) 3.2 K/uL (0.7-4.9); Absolute Monocytes 0.7 K/uL (0.1-1.3); Absolute Neutrophil 3.4 K/uL (1.8-8.0); Eosinophils % 8.3 % (0-4.4); Hematocrit 32.7 % (36.0-45.0); Hemoglobin 11.6 g/dL (12.0-15.0); Lymphocytes % 39.4 % (15.3-44.8); MCH 31.4 pg (27.0-35.0); MCHC 35.5 g/dL (32.0-36.0); MCV 88.6 fL (80-100); MPV 6.8 fL (7.6-11.3); Monocytes % 8.6 % (3.3-12.3); Neutrophils % 42.7 % (41.7-73.7); Nucleated Red Blood Cells % 0.1 % (0-0); Platelets 508 thou/uL (152-406); RBC Red Blood Cell Count 3.69 M/uL (3.86-4.86); Red Cell Distribution Width 12.9 % (12.1-15.2)
[2024-02-11 04:40] LABS: Anion Gap 8.8 mEq/L (5.0-15.0); Magnesium 1.5 mg/dL (1.6-2.4); Potassium 3.8 mEq/L (3.5-5.1)
[2024-02-11] MEDS: MAGNESIUM SULFATE 1 gm IVPB 1 GM/100 ML BAG IV ONE (06:15)
[2024-02-11] MEDS: ACETAMINOPHEN 500 MG TAB PO PRN (07:40)
[2024-02-11] MEDS: POTASSIUM CL SA 10 MEQ TAB PO ONE (07:42)
[2024-02-11] MEDS: lisinopriL 20 MG TAB PO SCH (07:42)
[2024-02-11 08:57] VITALS: TEMP 97.6
[2024-02-11 10:46] VITALS: BP 140/82
--- NOTE | 2024-02-11 10:50 | P.DS ---
Admission Date: 02/09/24 Discharge Date: 02/11/24 Disposition: ROUTINE DISCHARGE Discharge Condition: GOOD Reason for Admission: Sepsis, pneumonia Brief History of Present Illness: 88year-old female presents the emergency department with a chief complaint of fever, cough, shortness of breath and diarrhea. She reports the shortness of breath and cough has been going on for about a week and for last 3 days she has been having some mild diarrhea and fevers at home. She was evaluated in the emergency department her labs were significant for leukocytosis with white blood cell count 13.3 hemoglobin 11.5 hematocrit 33.9 sodium was 125 chloride was 91 lactic acid 1.5 COVID and influenza swabs are negative and chest x-ray showed left lower lobe pneumonia. Patient need to be admitted for pneumonia, sepsis Hospital Course: Patient was admitted to the hospital for left lower lobe pneumonia, hyponatremia/low sodium with a sodium of 125. She was treated with IV antibiotics and IV fluids for 1 day, her home medication indapamide was discontinued due to its likely contribution to the hyponatremia/low sodium. Patient breathing well on room air, she had been having some diarrhea the past few days but this has improved. Sodium level is 130 this morning, patient stable for discharge at this time. At discharge please continue taking your lisinopril for blood pressure. Discontinue/stop taking the indapamide as it may have contributed to your low sodium level Please follow-up with your primary care doctor for further adjustment of blood pressure medicine as needed. You will be sent new prescriptions for antibiotics Augmentin 875 mg per mouth twice daily for 1 week Doxycycline 100 mg by mouth twice daily for 1 week You may also benefit with taking some [id number] probiotics while you are on the antibiotics prevent further diarrhea Assessment: Sepsis secondary to left lower lobe community-acquired pneumonia Diarrhea Hyponatremia Hypertension Vital Signs/Physical Exam: Temp Pulse Resp BP Pulse Ox 97.6 F 72 17 140/82 95 02/11/24 08:00 02/11/24 08:00 02/11/24 08:00 02/11/24 10:17 02/11/24 08:00 General: Alert, In no apparent distress, Oriented x3 HEENT: Atraumatic, PERRLA Neck: Supple, JVD not distended Respiratory: Clear to auscultation bilaterally, Normal air movement Cardiovascular: Regular rate/rhythm, Normal S1 S2 Gastrointestinal: Normal bowel sounds Musculoskeletal: No tenderness Integumentary: No rashes Neurological: Normal speech, Normal tone, Normal affect Laboratory Data at Discharge: WBC 8.10 thou/uL (4.3-10.9) 02/11/24 03:38 Hgb 11.6 g/dL (12.0-15.0) L D 02/11/24 03:38 Hct 32.7 % (36.0-45.0) L 02/11/24 03:38 Plt Count 508 thou/uL (152-406) H 02/11/24 03:38 Sodium 130 mEq/L (136-145) L 02/11/24 03:38 Potassium 3.8 mEq/L (3.5-5.1) 02/11/24 03:38 BUN 11 mg/dL (7-18) 02/11/24 03:38 Creatinine 0.61 mg/dL (0.55-1.02) 02/11/24 03:38 Glucose 113 mg/dL (74-106) H 02/11/24 03:38 Magnesium 1.5 mg/dL (1.6-2.4) L 02/11/24 03:38 Total Bilirubin 0.6 mg/dL (0.2-1.0) 02/09/24 14:36 AST 17 U/L (15-37) 02/09/24 14:36 ALT 20 U/L (13-56) 02/09/24 14:36 Alkaline Phosphatase 92 U/L (45-117) 02/09/24 14:36 Home Medications: Amox/Clavulanate [Augmentin 875-125 Tab] 875 mg PO BID 7 Days #14 tab 02/11/24 Doxycycline Hyclate 100 mg PO BID 7 Days #14 cap 02/11/24 lisinopriL [Prinivil*] 20 mg PO DAILY tab 02/11/24 New Medications: Amox/Clavulanate [Augmentin 875-125 Tab] 875 mg PO BID 7 Days #14 tab Doxycycline Hyclate 100 mg PO BID 7 Days #14 cap Physician Discharge Instructions: Patient was admitted to the hospital for left lower lobe pneumonia, hyponatremia/low sodium with a sodium of 125. She was treated with IV antibiot ics and IV fluids for 1 day, her home medication indapamide was discontinued due to its likely contribution to the hyponatremia/low sodium. Patient breathing well on room air, she had been having some diarrhea the past few days but this has improved. Sodium level is 130 this morning, patient stable for discharge at this time. At discharge please continue taking your lisinopril for blood pressure. Discontinue/stop taking the indapamide as it may have contributed to your low sodium level Please follow-up with your primary care doctor for further adjustment of blood pressure medicine as needed. You will be sent new prescriptions for antibiotics Augmentin 875 mg per mouth twice daily for 1 week Doxycycline 100 mg by mouth twice daily for 1 week You may also benefit with taking some [id number]-udy-[id number] probiotics while you are on the antibiotics prevent further diarrhea Diet: AHA Activity: Ad antonio Followup: Tez Wagner DO [Primary Care Provider] - 1 Week Time spent managing pt's care (in minutes): 35
[2024-02-11] MEDS: PNEUMOCOCCAL VACCINE 0.5 ML IMVAC ONE (11:01)
[2024-02-11] MEDS: INFLUENZA VACCINE (for 6+ mo) 0.5 ML DOSE IMVAC ONE (11:04)
[2024-02-11] MEDS ORDERED: INFLUENZA VACCINE (for 6+ mo) 0.5 ML DOSE IMVAC ONE (12:00)
[2024-02-11] MEDS ORDERED: PNEUMOCOCCAL VACCINE 0.5 ML IMVAC ONE (12:00)
== END 2024-02-11 12:18 | disposition home or self-care (01) | DRG 871 ==
LOC: ER 12:40 → ERHOLD 15:47 → 4TH 16:30
PROVIDERS: ADMIT Hospitalist; ATTEND Hospitalist
DX: A41.9 Sepsis, unspecified organism (principal); J18.9 Pneumonia, unspecified organism; E87.1 Hypo-osmolality and hyponatremia; I10 Essential (primary) hypertension; R19.7 Diarrhea, unspecified; Z23 Encounter for immunization; Z88.1 Allergy status to other antibiotic agents; Z11.52 Encounter for screening for COVID-19; Z90.49 Acquired absence of other specified parts of digestive tract; Z79.899 Other long term (current) drug therapy; Z90.710 Acquired absence of both cervix and uterus
CPT/HCPCS: 36415; 71045; 80048; 80053; 82947; 83605; 83735; 85025; 87040; 87804; 87811; 90471; 90732; 93005; 96365; 96367; 99285; J0696; J1650; J3475; J7030; J7050; Q2035